=== PATIENT | female | born 1940 | race Caucasian/White ===

== ENCOUNTER 2019-03-16 17:53 | Emergency (ER) | payer MEDICARE ==
[~2019-03-16] VITALS: Ht 152.4 cm; Wt 51.7 kg
--- OUTSIDE RECORDS SUMMARY | 2019-03-16 17:56 | XMS REPORT | Clinical Summary ---
Author Author [facility] Address Unknown Phone Unavailable Care Team Providers Care Ostomy Nurse Name Role Phone Baljit Peralta MD PCP Allergies Comments Active Allergy Reactions Severity Noted Date Beverage Alcohol 03/17/2018 Garlic Diarrhea Low 07/15/2016 Lactulose Diarrhea Low 07/15/2016 Onion Diarrhea Low 07/15/2016 Converted from ECW; 5 D Z BUNNY - ; Other 04/20/2016 Medications End Date Status Medication Sig Dispensed Refills Start Date Active levothyroxine (SYNTHROID, TK 1 T PO QD 1 LEVOTHROID) 75 MCG tablet 6 Active traMADol (ULTRAM) 50 mg TK 1 T PO Q 6 0 tablet H PRN 6 Active propylene glycol-glycerin Apply to eye. 0 (ARTIFICIAL TEARS,GLYCERIN-PEG,) 1-0.3 % drops Active PREMARIN 0.625 mg/gram PABLO QD UTD 2 vaginal cream 6 Active rOPINIRole (REQUIP) 1 MG Take 1 mg by 0 tablet mouth daily. Active cholecalciferol, vitamin Take 2,000 0 D3, (VITAMIN D3) 2,000 Units by unit capsule capsule mouth daily. Active TURMERIC ROOT EXTRACT Take by mouth 0 ORAL daily. Active ascorbic acid, vitamin C, Take 500 mg 0 (VITAMIN C) 500 MG tablet by mouth daily. Active cyanocobalamin, vitamin Take by 0 B-12, (VITAMIN B-12) mouth. 1,000 mcg/mL drops Active Lactobacillus acidophilus Take by 0 (PROBIOTIC ACIDOPHILUS mouth. ORAL) Active bimatoprost (LUMIGAN) Administer 1 7.5 mL 4 0.01 % ophthalmic drops drop to both 9 eyes nightly. Active timolol (TIMOPTIC) 0.5 % Administer 1 30 mL 4 ophthalmic solution drop to both 9 eyes 2 (two) times a day. 03/17/2018 Discontinued (Discontinued by another clinician) hyoscyamine (LEVSIN) PLACE 1 T 0 0.125 mg SL tablet UNDER THE 6 TONGUE QID AC AND HS 12/01/2018 Discontinued (Therapy completed) loteprednol (ALREX) 0.2 % Apply 1 drop 5 mL 2 drops,suspension to eye 2 6 (two) times a day. 03/17/2018 Discontinued (Discontinued by another clinician) eszopiclone (LUNESTA) 3 Take 3 mg by 0 mg tablet mouth nightly. Take immediately before bedtime 12/01/2018 Discontinued (Therapy completed) latanoprost (XALATAN) Administer 1 0 0.005 % ophthalmic drop into the solution left eye nightly. 12/08/2018 Discontinued (Reorder) timolol (TIMOPTIC) 0.5 % Administer 1 0 ophthalmic solution drop into the left eye daily. 04/26/2018 Discontinued coenzyme Q10 10 mg Take 10 mg by 0 capsule mouth daily. 12/01/2018 Discontinued (Therapy completed) cyanocobalamin (VITAMIN Take 250 mcg 0 B-12) 250 MCG tablet by mouth daily. 04/26/2018 Discontinued celecoxib (CeleBREX) 200 Take 1 60 capsule 5 MG capsuleIndications: capsule (200 8 Spondylosis of cervical mg total) by region without myelopathy mouth 2 (two) or radiculopathy, times a day Osteoarthritis of spine for 180 days. with radiculopathy, lumbar region 12/01/2018 Discontinued (Therapy completed) XIIDRA 5 % dropperette INSTILL 1 3 DROP IN BOTH 8 EYES BID 09/19/2018 Discontinued (Therapy completed) clonAZEPAM (KlonoPIN) DISSOLVE 1 T 1 0.25 MG disintegrating ON TONGUE 8 tablet WHERE IT HAMPTON BID 07/31/2018 Discontinued diazePAM (VALIUM) 10 MG TK 1 T PO HS 0 tablet 8 09/19/2018 Discontinued (Therapy completed) gabapentin (NEURONTIN) Take 3 60 capsule 1 100 mg capsules (300 8 capsuleIndications: mg total) by Lumbar radiculopathy, mouth 2 (two) Polyneuropathy associated times a day. with underlying disease (HCC) 12/01/2018 Discontinued (Therapy completed) nutritional Take by mouth 0 supplement/fiber daily. (SNVTYO-DGHK-JLNE ORAL) 01/19/2019 Discontinued prednisoLONE acetate Administer 1 0 (PRED FORTE) 1 % drop to the ophthalmic suspension right eye 3 (three) times a day. 01/19/2019 Discontinued (Reorder) bimatoprost (LUMIGAN) Administer 1 0 0.01 % ophthalmic drops drop to both eyes nightly. 01/19/2019 Discontinued (Reorder) timolol (TIMOPTIC) 0.5 % Administer 1 10 mL 6 ophthalmic solution drop to both 9 eyes 2 (two) times a day. Active Problems Problem Noted Date Chronic angle-closure glaucoma, severe stage 09/25/2018 Myositis 07/31/2018 Primary insomnia 07/31/2018 Spinal stenosis of lumbar region without neurogenic claudication 04/26/2018 Cervical spinal stenosis 04/26/2018 Polyneuropathy associated with underlying disease 04/26/2018 Falling 04/26/2018 Bilateral carpal tunnel syndrome 04/26/2018 Atrophy of muscle of hand 04/26/2018 Sjogren's syndrome with keratoconjunctivitis sicca 03/28/2018 Osteoarthritis of spine with radiculopathy, lumbar region 03/28/2018 Spondylosis of cervical region without myelopathy or radiculopathy 03/28/2018 Acquired hypothyroidism 03/28/2018 Vitamin D deficiency 03/28/2018 Sprain of right rotator cuff capsule 03/28/2018 Age-related osteoporosis without current pathological fracture 03/28/2018 Abnormality of gait 08/12/2016 Myalgia 08/12/2016 Resolved Problems Problem Noted Date Resolved Date Combined forms of age-related cataract of both eyes 09/25/2018 01/19/2019 Encounters Care Team Description Date Type Specialty Viviane Shaffer 02/08/2019 Telephone Endocrinology Viviane Shaffer 01/31/2019 Telephone Endocrinology Bella Alcantar MD Chronic angle-closure glaucoma, severe stage, unspecified laterality (Primary Dx) 01/19/2019 Office Visit Ophthalmology Center, Ophthalmology - Clinical Care 01/02/2019 Telephone Ophthalmology Center, Ophthalmology - Clinical Care 12/25/2018 Telephone Ophthalmology Bella Alcantar MD Combined forms of age-related cataract of both eyes (Primary Dx) 12/15/2018 Office Visit Ophthalmology Bella Alcantar MD Chronic angle-closure glaucoma, severe stage, unspecified laterality (Primary Dx); Combined forms of age-related cataract of both eyes; Sjogren's syndrome with keratoconjunctivitis sicca (HCC) 12/08/2018 Office Visit Ophthalmology Center, Ophthalmology - Clinical Care 12/08/2018 Telephone Ophthalmology Bella Alcantar MD 12/08/2018 Telephone Ophthalmology Bella Alcantar MD CATARACT REMOVAL BY PHACOEMULSIFICATION WITH INTRAOCULAR LENS IMPLANT, ENDOSCOPIC PHOTOCOAGULATION, LEFT EYE 12/07/2018 Surgery Plastic Surgery Baldomero Cook MD 12/07/2018 Anesthesia Plastic Surgery Event Bella Alcantar MD 12/07/2018 Hospital Plastic Surgery Encounter Tonya Sánchez RN 12/07/2018 Telephone Ophthalmology oTnya Sánchez RN 12/07/2018 Telephone Ophthalmology Bella Alcantar MD Combined forms of age-related cataract of both eyes (Primary Dx); Chronic angle-closure glaucoma, severe stage, unspecified laterality 12/01/2018 Office Visit Ophthalmology Bella Alcantar MD Chronic angle-closure glaucoma, severe stage, unspecified laterality (Primary Dx); Combined forms of age-related cataract of both eyes 11/24/2018 Office Visit Ophthalmology Bella Alcantar MD CATARACT REMOVAL BY PHACOEMULSIFICATION WITH INTRAOCULAR LENS IMPLANT, ENDOSCOPIC PHOTOCOAGULATION, RIGHT EYE 11/23/2018 Surgery Plastic Surgery Bernadette Aguillon MD 11/23/2018 Anesthesia Plastic Surgery Event Bella Alcantar MD 11/23/2018 Hospital Plastic Surgery Encounter Bella Alcantar MD 11/22/2018 Telephone Ophthalmology Bella Alcantar MD 11/17/2018 Telephone Ophthalmology Bella Alcantar MD 11/16/2018 Telephone Ophthalmology Bella Alcantar MD 11/01/2018 Telephone Ophthalmology Bella Alcantar MD 11/01/2018 Telephone Ophthalmology Bella Alcantar MD 10/27/2018 Telephone Ophthalmology Center, Ophthalmology - Clinical Care 10/06/2018 Telephone Ophthalmology Bella Alcantar MD 10/02/2018 Telephone Ophthalmology Bella Alcantar MD 10/02/2018 Telephone Ophthalmology Center, Ophthalmology - Clinical Care 09/28/2018 Telephone Ophthalmology Center, Ophthalmology - Clinical Care 09/27/2018 Telephone Ophthalmology Bella Alcantar MD 09/26/2018 Telephone Ophthalmology Bella Alcantar MD Combined forms of age-related cataract of both eyes (Primary Dx); Chronic angle-closure glaucoma, severe stage, unspecified laterality 09/25/2018 Office Visit Ophthalmology Gonzalo Garay MD Generalized OA (Primary Dx); Osteoarthritis of spine with radiculopathy, cervical region; Spinal stenosis of lumbar region without neurogenic claudication; Fibromyalgia; Glaucoma of both eyes, unspecified glaucoma type; Vitamin D deficiency 09/19/2018 Office Visit Rheumatology Viviane Shaffer 09/19/2018 Telephone Endocrinology Viviane Shaffer 09/18/2018 Telephone Endocrinology Les Tobias MD Primary osteoarthritis of left knee (Primary Dx); Lumbar radiculopathy; Myalgia; Sjogren's syndrome with keratoconjunctivitis sicca (HCC); Abnormality of gait; Spinal stenosis of lumbar region without neurogenic claudication; Falling; Back pain, unspecified back location, unspecified back pain laterality, unspecified chronicity; Other myositis of other site; Lumbar radicular pain; Chronic pain of left knee; Primary insomnia 07/31/2018 Office Visit Physical Medicine and Rehabilitation Maryanne Roberts MD 05/08/2018 Telephone Neurology Maryanne Roberts MD 05/02/2018 Telephone Neurology Maryanne Roberts MD Lumbar radiculopathy (Primary Dx); Spinal stenosis of lumbar region without neurogenic claudication; Weakness of extremity; Cervical spinal stenosis; Polyneuropathy associated with underlying disease (HCC); Falling; Bilateral carpal tunnel syndrome; Atrophy of muscle of hand, unspecified laterality 04/26/2018 Office Visit Neurology Jasmin Monzon MA Age-related osteoporosis without current pathological fracture (Primary Dx) 04/26/2018 Orders Only Rheumatology Jasmin Monzon MA 04/26/2018 Telephone Rheumatology Gonzalo Garay MD Claudication 03/27/2018 Hospital Procedural Cardiology Encounter Gonzalo Garay MD Pain in both feet 03/27/2018 Hospital Radiology Encounter Gonzalo Garay MD Chronic pain of both ankles 03/27/2018 Hospital Radiology Encounter Gonzalo Garay MD Sprain of right rotator cuff capsule, initial encounter 03/27/2018 Hospital Radiology Encounter Diana Manrique MD Other hearing loss of right ear with unrestricted hearing of left ear; Sensory hearing loss, bilateral 03/27/2018 Hospital Radiology Encounter Gonzalo Garay MD Osteoarthritis of spine with radiculopathy, lumbar region 03/27/2018 Hospital Radiology Encounter Gonzalo Garay MD Age-related osteoporosis without current pathological fracture 03/27/2018 Ancillary Radiology Procedure Viviane Shaffer 03/24/2018 Telephone Endocrinology Diana Manrique MD Other hearing loss of right ear with unrestricted hearing of left ear (Primary Dx); Sensory hearing loss, bilateral; Dizziness and giddiness 03/21/2018 Transcribe Access Orders Viviane Shaffer 03/20/2018 Telephone Endocrinology Gonzalo Garay MD Sjogren's syndrome with keratoconjunctivitis sicca (Primary Dx); Spondylosis of cervical region without myelopathy or radiculopathy; Osteoarthritis of spine with radiculopathy, lumbar region; Positive LISBET (antinuclear antibody); Elevated rheumatoid factor; Acquired hypothyroidism; Glaucoma of both eyes, unspecified glaucoma type; Weakness; Encounter for long-term (current) use of high-risk medication; Vitamin D deficiency; Sprain of right rotator cuff capsule, initial encounter; Claudication; Age-related osteoporosis without current pathological fracture; Pain in both feet; Chronic pain of both ankles 03/17/2018 Office Visit Rheumatology after 03/15/2018 Immunizations Name Administration Dates Next Due Pneumococcal 01/06/2011 Polysaccharide Family History Medical History Relation Name Comments Lung cancer Father Pneumonia Mother Aspiration Relation Name Status Comments Father Mother Social History Date Tobacco Use Types Packs/Day Years Used Never Smoker Smokeless Tobacco: Never Used Drinks/Week oz/Week Comments Alcohol Use No Sex Assigned at Date Recorded Not on file Industry Job Start Date Occupation Not on file Not on file Not on file Travel End Travel History Travel Start No recent travel history available. Last Filed Vital Signs Reading Time Taken Comments Vital Sign 141/66 12/07/2018 12:32 PM CDT Blood Pressure 64 12/07/2018 12:29 PM CDT Pulse 36.7 C (98 F) 12/07/2018 12:29 PM CDT Temperature 16 12/07/2018 12:29 PM CDT Respiratory Rate 99% 12/07/2018 12:29 PM CDT Oxygen Saturation - - Inhaled Oxygen Concentration 55.5 kg (122 lb 7 oz) 12/07/2018 10:05 AM CDT Weight 152.4 cm (5') 12/07/2018 10:05 AM CDT Height 23.91 12/07/2018 10:05 AM CDT Body Mass Index Plan of Treatment Care Team Description Date Type Specialty Richard Dejesus II, MD [address] [facility] [address] [place] [address] [id number] 03/30/2019 Office Visit Ophthalmology Gonzalo Garay MD [address] [facility] [address] [place] [address] [phone] 04/05/2019 Appointment Radiology Gonzalo Garay MD [address] [facility] [address] [place] [address] [phone] 04/05/2019 Office Visit Rheumatology Bella Alcantar MD [address] [address] [phone] 04/18/2019 Office Visit Ophthalmology Health Maintenance Due Date Last Done Comments SHINGLES VACCINES (#1) 1991 INFLUENZA VACCINE 02/01/2019 65+ PNEUMOCOCCAL VACCINE Completed 2015, 01/06/2011 Implants Device Identifier Shelf Expiration Date Model / Serial / Lot Implanted Type Area [facility] 06/15/2021 [id number] / [id number] / [id number] Lens Iol Tecnis Monofocal Preloaded Intraocula Right: Eye BAUGH 1 Piece Pcb 22.5d - [id number] - r Lens MEDICAL [id number] Implant OPTICS Implanted: Qty: 1 on 11/23/2018 by Bella Alcantar MD at [facility] 08/09/2021 [id number] / [id number] / [id number] Lens Iol Tecnis Monofocal Preloaded Intraocula Left: Eye BAUGH 1 Piece Pcb 22.5d - [id number] - r Lens MEDICAL [id number] Implant OPTICS Implanted: Qty: 1 on 12/07/2018 by Bella Alcantar MD at [facility] Procedures Comments Procedure Name Priority Date/Time Associated Diagnosis PHACOEMULSIFICATION, 12/07/2018 Combined form of CATARACT, WITH IOL 11:44 AM CDT age-related cataract, IMPLANTATION left eye Chronic angle-closure glaucoma, severe stage Case Notes REG LENS Special Needs REG LENS PHACOEMULSIFICATION, 11/23/2018 Combined form of CATARACT, WITH IOL 11:05 AM CDT age-related cataract, IMPLANTATION right eye Chronic angle-closure glaucoma, severe stage Special Needs REG LENS OCT, OPTIC NERVE - OU - Routine 09/25/2018 Chronic angle-closure BOTH EYES 11:17 AM CDT glaucoma, severe stage, unspecified laterality AUTOMATED VISUAL FIELD, Routine 09/25/2018 Chronic angle-closure EXTENDED - OU - BOTH EYES 11:17 AM CDT glaucoma, severe stage, unspecified laterality MRI CERVICAL SPINE WO STAT 04/27/2018 Weakness of extremity CONTRAST 2:00 PM CDT Cervical spinal stenosis XR FOOT 3 VW BILATERAL Routine 03/27/2018 Pain in both feet 3:08 PM CDT XR ANKLE 3 VW BILATERAL Routine 03/27/2018 Chronic pain of both 3:08 PM CDT ankles XR SHOULDER 2+ VW RIGHT Routine 03/27/2018 Sprain of right rotator 3:07 PM CDT cuff capsule, initial encounter PV PHYSIOLOGIC ARTERIAL Routine 03/27/2018 Claudication LOWER EXTREMITY COMPLETE 2:12 PM CDT MRI IAC W WO CONTRAST Routine 03/27/2018 Other hearing loss of 12:40 PM CDT right ear with unrestricted hearing of left ear Sensory hearing loss, bilateral MRI LUMBAR SPINE WO Routine 03/27/2018 Osteoarthritis of spine CONTRAST 12:16 PM CDT with radiculopathy, lumbar region BONE DENSITY Routine 03/27/2018 Age-related osteoporosis 9:56 AM CDT without current pathological fracture VITAMIN D 25 HYDROXY Routine 03/17/2018 Vitamin D deficiency LEVEL 2:00 PM CDT URINALYSIS, AUTOMATED Routine 03/17/2018 Encounter for long-term WITH MICROSCOPY 2:00 PM CDT (current) use of high-risk medication SSA/SSB ANTIBODY Routine 03/17/2018 Sjogren's syndrome with 2:00 PM CDT keratoconjunctivitis sicca SM AND SM/BUSINESS OFFICE REPRESENTATIVE ANTIBODIES Routine 03/17/2018 Positive LISBET (antinuclear 2:00 PM CDT antibody) SEDIMENTATION RATE Routine 03/17/2018 Sjogren's syndrome with 2:00 PM CDT keratoconjunctivitis sicca SERUM ELECTROPHORESIS Routine 03/17/2018 Sjogren's syndrome with 2:00 PM CDT keratoconjunctivitis sicca RHEUMATOID FACTOR Routine 03/17/2018 Elevated rheumatoid 2:00 PM CDT factor DNA AB SCREEN Routine 03/17/2018 Positive LISBET (antinuclear 2:00 PM CDT antibody) CYCLIC CITRULLINATED Routine 03/17/2018 Elevated rheumatoid PEPTIDE AB, IGG 2:00 PM CDT factor CREATINE KINASE, TOTAL Routine 03/17/2018 Weakness (CPK) 2:00 PM CDT C-REACTIVE PROTEIN Routine 03/17/2018 Sjogren's syndrome with 2:00 PM CDT keratoconjunctivitis sicca COMPREHENSIVE METABOLIC Routine 03/17/2018 Encounter for long-term PANEL 2:00 PM CDT (current) use of high-risk medication CBC WITH PLATELET AND Routine 03/17/2018 Encounter for long-term DIFFERENTIAL 2:00 PM CDT (current) use of high-risk medication C4 COMPLEMENT COMPONENT Routine 03/17/2018 Positive LISBET (antinuclear 2:00 PM CDT antibody) C3 COMPLEMENT COMPONENT Routine 03/17/2018 Positive LISBET (antinuclear 2:00 PM CDT antibody) LISBET SCREEN W IFA W REFLEX Routine 03/17/2018 Positive LISBET (antinuclear TO TITER 2:00 PM CDT antibody) after 03/15/2018 Results * OCT, Optic Nerve - OU (09/25/2018 11:17 AM CDT) Specimen Narrative Performed At Right Eye Reliability was good. Temporal thickness was normal. Superior thickness was showing abnormal thinning. Nasal thickness was normal. Inferior thickness was showing abnormal thinning. Left Eye Reliability was good. Temporal thickness was normal. Superior thickness was normal. Nasal thickness was normal. Inferior thickness was showing abnormal thinning. * Automated Visual Field, Extended - OU (09/25/2018 11:17 AM CDT) Specimen Narrative Performed At Right Eye Threshold was 24-2. Strategy was ZENAIDA. Findings include superior altitudinal defect. Left Eye Threshold was 24-2. Strategy was ZENAIDA. Findings include superior arcuate defect. * MRI Cervical Spine Wo Contrast (04/27/2018 2:00 PM CDT) Specimen Narrative Performed At [facility] EXAMINATION:MRI CERVICAL SPINE WO CONTRAST CLINICAL HISTORY:R29.898 Other symptoms and signs involving the musculoskeletal system, M48.02 Spinal stenosiscervical region, weaknesscervical radiculopathyneck pain COMPARISON:CT cervical spine March 03, 2015. FINDINGS: C1-2: There are mild degenerative changes at the atlantodental articulation C2-3: There is mild spondylosis and minimal central disc protrusion. There is no canal stenosis or foraminal stenosis. C3-4: There is minimal spondylolisthesis of C3 relative to C4. There is marked disc space narrowing, moderate spondylosis and degenerative change in the disc. There is shallow dorsal osteophyte formation and with mild to moderate (8 mm) canal stenosis without cord compression. There is uncovertebral hypertrophic change with moderate foraminal stenosis bilaterally. C4-5: General change in the disc and at least partial fusion of the disc space. There is minimal dorsal osteophyte formation greater on the right without canal stenosis or cord correction. There is mild foraminal stenosis on the right. C5-6: There is marked disc space narrowing, spondylosis and degenerative change in the disc. There is a minimal dorsal disc bulge without canal stenosis.. There are uncovertebral hypertrophic changes with at least moderate foraminal stenosis bilaterally. There is slight retrolisthesis of C5 relative to C6. C6-7: There is marked disc space narrowing, moderate spondylosis and degenerative change of the disc. There is slight retrolisthesis of C6 relative to C7. There is minimal dorsal spondylosis and disc bulge without canal stenosis. There is mild to moderate foraminal stenosis bilaterally. C7-T1: There is minimal if any spondylolisthesis of C7 relative T1 with moderate degenerative change in the facet joints. There is no stenosis. There is slight reversal of the normal cervical lordotic curve with apex at C4-5. There is no signal abnormality demonstrated in the spinal cord and no evidence of Chiari malformation. IMPRESSION: Considerable degenerative changes in the cervical spine without significant spinal canal stenosis. There is multilevel foraminal stenosis bilaterally. The findings are very similar to that seen on the prior study. There is no evidence of a spinal cord lesion. [facility]-[id number] Procedure Note Hm Interface, Radiology Results Incoming - 04/27/2018 2:59 PM CDT EXAMINATION: MRI CERVICAL SPINE WO CONTRAST CLINICAL HISTORY: R29.898 Other symptoms and signs involving the musculoskeletal system, M48.02 Spinal stenosis cervical region, weakness cervical radiculopathy neck pain COMPARISON: CT cervical spine March 03, 2015. FINDINGS: C1-2: There are mild degenerative changes at the atlantodental articulation C2-3: There is mild spondylosis and minimal central disc protrusion. There is no canal stenosis or foraminal stenosis. C3-4: There is minimal spondylolisthesis of C3 relative to C4. There is marked disc space narrowing, moderate spondylosis and degenerative change in the disc. There is shallow dorsal osteophyte formation and with mild to moderate (8 mm) canal stenosis without cord compression. There is uncovertebral hypertrophic change with moderate foraminal stenosis bilaterally. C4-5: General change in the disc and at least partial fusion of the disc space. There is minimal dorsal osteophyte formation greater on the right without canal stenosis or cord correction. There is mild foraminal stenosis on the right. C5-6: There is marked disc space narrowing, spondylosis and degenerative change in the disc. There is a minimal dorsal disc bulge without canal stenosis.. There are uncovertebral hypertrophic changes with at least moderate foraminal stenosis bilaterally. There is slight retrolisthesis of C5 relative to C6. C6-7: There is marked disc space narrowing, moderate spondylosis and degenerative change of the disc. There is slight retrolisthesis of C6 relative to C7. There is minimal dorsal spondylosis and disc bulge without canal stenosis. There is mild to moderate foraminal stenosis bilaterally. C7-T1: There is minimal if any spondylolisthesis of C7 relative T1 with moderate degenerative change in the facet joints. There is no stenosis. There is slight reversal of the normal cervical lordotic curve with apex at C4- 5. There is no signal abnormality demonstrated in the spinal cord and no evidence of Chiari malformation. IMPRESSION: Considerable degenerative changes in the cervical spine without significant spinal canal stenosis. There is multilevel foraminal stenosis bilaterally. The findings are very similar to that seen on the prior study. There is no evidence of a spinal cord lesion. [facility]-[id number] Performing Organization Address City/State/Zipcode Phone Number [facility] [address] [place] [address] * XR Foot 3 Vw Bilateral (03/27/2018 3:08 PM CDT) Specimen Narrative Performed At XR FOOT 3 VW BILATERAL [facility] CLINICAL INDICATION:M79.671 Pain in right foot, M79.672 Pain in left foot, foot pain with former fractures COMPARISON:None. IMPRESSION: Bones are normal in alignment with mild decreased bone density. There is no fracture or osseous lesion. There are minimal degenerative changes of the left greater than right first metatarsophalangeal joint. No inflammatory erosions are identified. There is mild osseous remodeling of the dorsal navicular with slight joint space narrowing on the right. Soft tissues are unremarkable. Thank you for allowing us to participate in the care of your patient [facility]-[id number] Procedure Note Interface, Radiology Results Incoming - 03/27/2018 3:38 PM CDT XR FOOT 3 VW BILATERAL CLINICAL INDICATION: M79.671 Pain in right foot, M79.672 Pain in left foot, foot pain with former fractures COMPARISON: None. IMPRESSION: Bones are normal in alignment with mild decreased bone density. There is no fracture or osseous lesion. There are minimal degenerative changes of the left greater than right first metatarsophalangeal joint. No inflammatory erosions are identified. There is mild osseous remodeling of the dorsal navicular with slight joint space narrowing on the right. Soft tissues are unremarkable. Thank you for allowing us to participate in the care of your patient [facility]-[id number] Performing Organization Address [facility] Phone Number [facility] [address] [place], [place] [id number] * XR Ankle 3 Vw Bilateral (03/27/2018 3:08 PM CDT) Specimen Narrative Performed At XR ANKLE 3 VW BILATERAL [facility] CLINICAL INDICATION:M25.571 Pain in right ankle and joints of right foot, G89.29 Other chronic pain, Inflammatory arthritis with ankle pain COMPARISON:None. IMPRESSION: Bones appear demineralized but intact without fracture or osseous lesion. No significant osteoarthritic changes are identified in the ankle. Soft tissues are unremarkable. Thank you for allowing us to participate in the care of your patient [id number] Procedure Note Interface, Radiology Results Incoming - 03/27/2018 3:43 PM CDT XR ANKLE 3 VW BILATERAL CLINICAL INDICATION: M25.571 Pain in right ankle and joints of right foot, G89.29 Other chronic pain, Inflammatory arthritis with ankle pain COMPARISON: None. IMPRESSION: Bones appear demineralized but intact without fracture or osseous lesion. No significant osteoarthritic changes are identified in the ankle. Soft tissues are unremarkable. Thank you for allowing us to participate in the care of your patient [id number] Performing Organization Address [facility] Phone Number [facility] [address] [place] [address] * XR Shoulder 2+ Vw Right (03/27/2018 3:07 PM CDT) Specimen Narrative Performed At XR SHOULDER 2VW RIGHT [facility] CLINICAL INDICATION:S43.421A Sprain of right rotator cuff capsuleinitial encounter, Rotator Cuff Impingement COMPARISON:None. IMPRESSION: No fracture or dislocation right shoulder is identified. Acromioclavicular joint appears maintained. Clavicle and lateral thoracic wall structures are unremarkable.Soft tissues appear within normal limits. Thank you for allowing us to participate in the care of your patient. [id number] Procedure Note Interface, Radiology Results Incoming - 03/27/2018 3:31 PM CDT XR SHOULDER 2 VW RIGHT CLINICAL INDICATION: S43.421A Sprain of right rotator cuff capsule initial encounter, Rotator Cuff Impingement COMPARISON: None. IMPRESSION: No fracture or dislocation right shoulder is identified. Acromioclavicular joint appears maintained. Clavicle and lateral thoracic wall structures are unremarkable. Soft tissues appear within normal limits. Thank you for allowing us to participate in the care of your patient. [id number] Performing Organization Address City/State/Zipcode Phone Number [facility] [address] [facility]. [place] [id number] * Pv physiologic arterial lower extremity complete (03/27/2018 2:12 PM CDT) Specimen Narrative Performed At [facility] Vascular Diagnostic Laboratory Physiologic Arterial Leg Report [id number] [facility] [address], [place] [id number] Pat.Name:CLAIRE PAREKH Pat.ID:[id number] St.Date: 03/27/2018 Refer.MD:GONZALO GARAY MD Exam Time: 12:58:00 PM Study Type:Physiologic Leg DOBAge:1940,78Y Sex: FEMALE Sonogrphr: Duglas Ulloa RN, RVTPat. Stat.:Outpatient TapeVol: DP, CPT - 4: 65636 Echo Event ID:[id number] Order ID:[id number] Reason for Study:Bilateral foot pain and tingling.Pain down posterior to left leg. Procedures:Ankle/brachial pressures, Digit pressures, Non-imaging continuous wave Doppler, PPG waveform tracing, Segmental pressures Race: SUMMARY: DOPPLER SIGNALS /ANALOG WAVEFORMS: DOPPLER SIGNALS ANALOG WAVEFORMS ARTERY RIGHT LEFT RIGHT LEFT Common Femoral Normal Normal Normal Normal Superficial Femoral Normal NormalNormalNormal PoplitealNormal NormalNormalNormal Posterior Tibial Normal NormalNormal Normal Dorsalis Pedis Normal NormalNormalNormal SEGMENTAL PRESSURE(mmHg): RIGHT LEFT Brachial 134 130 High [id number] 164 Low Ssave010 160 Calf [id number] Ankle DP 148 141 Ankle [id number] Great Toe 561992 ANKLE/BRACHIAL INDEX: RIGHTLEFT Dorsalis Pedis1.051.07 Posterior Tibial1.10 1.05 TOE/BRACHIAL INDEX: RIGHT LEFT 0.880.87 PRELIMINARY FINDINGS: 1.Normal arterial Doppler study of the lower extremities. PHYSICIAN INTERPRETATION: Bilateral lower extremity arterial exam demonstrates no evidence of significant arterial occlusive disease. The DELIA's and TBI's are within normal range. Signed 03/27/2018 03:59 PM Mata Serrano MD, [facility] Procedure Note Interface, Radiology Results In - 03/27/2018 4:00 PM CDT Vascular Diagnostic Laboratory Physiologic Arterial Leg Report [id number] [address] Pat.Name: CLAIRE PAREKH Pat.ID: [id number] .Date: 03/27/2018 Refer.MD: GONZALO GARAY MD Exam Time: 12:58:00 PM Study Type:Physiologic Leg Age: 9 1940,78Y Sex: FEMALE Sonogrphr: Duglas Ulloa RN, T Pat. Stat.:Outpatient Tape Vol: DP, CPT - 4: 44505 Echo Event ID:[id number] Order ID: [id number] Reason for Study:Bilateral foot pain and tingling. Pain down posterior to left leg. Procedures:Ankle/brachial pressures, Digit pressures, Non-imaging continuous wave Doppler, PPG waveform tracing, Segmental pressures Race: SUMMARY: DOPPLER SIGNALS / ANALOG WAVEFORMS: DOPPLER SIGNALS ANALOG WAVEFORMS ARTERY RIGHT LEFT RIGHT LEFT Common Femoral Normal Normal Normal Normal Superficial Femoral Normal Normal Normal Normal Popliteal Normal Normal Normal Normal Posterior Tibial Normal Normal Normal Normal Dorsalis Pedis Normal Normal Normal Normal SEGMENTAL PRESSURE (mmHg): RIGHT LEFT Brachial 134 130 High Thigh 162 164 Low Thigh 158 160 Calf 153 154 Ankle DP 148 141 Ankle PT 140 144 Great Toe 118 116 ANKLE/BRACHIAL INDEX: RIGHT LEFT Dorsalis Pedis 1.05 1.07 Posterior Tibial 1.10 1.05 TOE/BRACHIAL INDEX: RIGHT LEFT 0.88 0.87 PRELIMINARY FINDINGS: 1. Normal arterial Doppler study of the lower extremities. PHYSICIAN INTERPRETATION: Bilateral lower extremity arterial exam demonstrates no evidence of significant arterial occlusive disease. The DELIA's and TBI's are within normal range. Signed 03/27/2018 03:59 PM Mata Serrano MD, RPVI Performing Organization Address City/State/Zipcode Phone Number [facility] [address] [place] [address] * MRI IAC W Wo Contrast (03/27/2018 12:40 PM CDT) Specimen Narrative Performed At [facility] EXAMINATION: MRI IAC W WO CONTRAST COMPARISON: None CLINICAL HISTORY H91.8X1 Other specified hearing lossright ear, H90.3 Sensorineural hearing lossbilateral, Other hearing loss of right ear with unrestricted hearing of left ear. TECHNIQUE: Multiplanar multisequence examination was performed with and without contrast as well as including high-resolution images of the posterior fossa FINDINGS: There is no definite diffusion restriction. The ventricles and subarachnoid spaces are diffusely dilated. There are minimal chronic microvascular ischemic changes in the centrum semiovale and in the gianna. High-resolution images of the posterior fossa demonstrate the mastoid air cells to be normally and symmetrically developed and aerated. There is no abnormal signal or abnormal enhancement within the internal auditory canals or the CP angle cisterns. There are no abnormal enhancing lesions within the brain parenchyma. There are no brainstem structures abnormalities. IMPRESSION: Generalized involutional changes. No evidence of acute abnormalities or abnormal enhancing lesions especially in the posterior fossa. [facility]-[id number] Procedure Note Interface, Radiology Results Incoming - 03/27/2018 1:28 PM CDT EXAMINATION: MRI IAC W WO CONTRAST COMPARISON: None CLINICAL HISTORY H91.8X1 Other specified hearing loss right ear, H90.3 Sensorineural hearing loss bilateral, Other hearing loss of right ear with unrestricted hearing of left ear. TECHNIQUE: Multiplanar multisequence examination was performed with and without contrast as well as including high-resolution images of the posterior fossa FINDINGS: There is no definite diffusion restriction. The ventricles and subarachnoid spaces are diffusely dilated. There are minimal chronic microvascular ischemic changes in the centrum semiovale and in the gianna. High-resolution images of the posterior fossa demonstrate the mastoid air cells to be normally and symmetrically developed and aerated. There is no abnormal signal or abnormal enhancement within the internal auditory canals or the CP angle cisterns. There are no abnormal enhancing lesions within the brain parenchyma. There are no brainstem structures abnormalities. IMPRESSION: Generalized involutional changes. No evidence of acute abnormalities or abnormal enhancing lesions especially in the posterior fossa. 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 FINDINGS: There are 5 non-rib bearing lumbar type vertebrae. No fracture. 1 to 2 mm anterolisthesis L4 on L5, degenerative.No suspicious osseous lesions. Marrow edema about the L3-4 endplates, degenerative. Conus medullaris terminates at the level of L1. Evaluation of the visualized soft tissues demonstrates no mass, adenopathy or aneurysm. Axial images through the disc spaces demonstrate the following: L1-L2: No significant posterior disc disease, spinal canal, subarticular zone, or neural foraminal stenosis. Disc desiccation. L2-L3: Severe disc height loss with Modic type II endplate changes. Small endplate osteophytes and mild to moderate facet arthropathy contributes to mild to moderate left and mild right neural foraminal stenosis, without significant spinal canal or subarticular zone stenosis. L3-L4: Marrow edema about the endplates, degenerative. Small endplate osteophytes and small disc bulge, as well as moderate left and mild right facet arthropathy contributes to moderate left and mild right subarticular zone stenosis, mild spinal canal stenosis, moderate to severe left and mild right neural foraminal stenosis, with possible mass effect on the exiting left L3 nerve root by endplate osteophytes distally. L4-L5: Severe facet arthropathy with mild ligament flavum infolding and associated grade 1 anterolisthesis, disc uncovering, and small endplate osteophytes contributes to mild right greater than left neural foraminal stenosis, mild to moderate spinal canal stenosis, mild left and moderate right subarticular zone stenosis with abutment of the traversing right L5 nerve root without definite compression. L5-S1: Small disc bulge and severe facet arthropathy contributes to mild right neural foraminal stenosis, without significant spinal canal, subarticular zone, or left neural foraminal stenosis. IMPRESSION: 1. Multilevel degenerative changes of the lumbar spine, centrally at L2-3, L3-4, and L4-5 as above. 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 FINDINGS: There are 5 non-rib bearing lumbar type vertebrae. No fracture. 1 to 2 mm anterolisthesis L4 on L5, degenerative. No suspicious osseous lesions. Marrow edema about the L3-4 endplates, degenerative. Conus medullaris terminates at the level of L1. Evaluation of the visualized soft tissues demonstrates no mass, adenopathy or aneurysm. Axial images through the disc spaces demonstrate the following: L1-L2: No significant posterior disc disease, spinal canal, subarticular zone, or neural foraminal stenosis. Disc desiccation. L2-L3: Severe disc height loss with Modic type II endplate changes. Small endplate osteophytes and mild to moderate facet arthropathy contributes to mild to moderate left and mild right neural foraminal stenosis, without significant spinal canal or subarticular zone stenosis. L3-L4: Marrow edema about the endplates, degenerative. Small endplate osteophytes and small disc bulge, as well as moderate left and mild right facet arthropathy contributes to moderate left and mild right subarticular zone stenosis, mild spinal canal stenosis, moderate to severe left and mild right neural foraminal stenosis, with possible mass effect on the exiting left L3 nerve root by endplate osteophytes distally. L4-L5: Severe facet arthropathy with mild ligament flavum infolding and associated grade 1 anterolisthesis, disc uncovering, and small endplate osteophytes contributes to mild right greater than left neural foraminal stenosis, mild to moderate spinal canal stenosis, mild left and moderate right subarticular zone stenosis with abutment of the traversing right L5 nerve root without definite compression. L5-S1: Small disc bulge and severe facet arthropathy contributes to mild right neural foraminal stenosis, without significant spinal canal, subarticular zone, or left neural foraminal stenosis. IMPRESSION: 1. Multilevel degenerative changes of the lumbar spine, centrally at L2-3, L3-4, and L4-5 as above. [id number] Performing Organization Address City/State/Zipcode Phone Number [facility] [address] [place] [address] * Bone Density (03/27/2018 9:56 AM CDT) Specimen Narrative Performed At [facility] [address], [place]. [address] [place] [address] Bone Density Report Name: Claire Parekh Sex: Female Age: 78 Ethnicity: White Height: 59.5 in Referring Provider: GONZALO GARAY Date of : 1940 Weight: 119.0lb Indication: Postmenopausal; screening for osteoporosis; prior fracture Accession number: [id number] Bone Density: Exam date 03/27/2018 Region BMD (g/cm2) T-score Z-score Classification AP Spine(L1, L2) 0.799 -1.60.7 Osteopenia Femoral Neck(Left) 0.655 -1.70.4 Osteopenia Total Hip(Left) 0.812 -1.10.8 Osteopenia Femoral Neck(Right) 0.638 -1.90.3 Osteopenia Total Hip(Right) 0.791 -1.20.7 Osteopenia Total Hip Mean 0.802 -1.2 0.8 Osteopenia World Health Organization criteria for BMD impression classify patients as Normal (T-score at or above 1.0), Osteopenia (T-score between 1.0 and 2.5), or Osteoporosis (T-score at or below 2.5). 10-year Fracture Risk: Major Osteoporotic Fracture 19% Hip Fracture 4.6% Reported Risk Factors: [place] (), T-score(WHO)=-1.8, BMI=23.6, previous fracture FRAX Version 3.08. Fracture probability calculated for an untreated patient. Fracture probability may be lower if the patient has received treatment. Impression: Degenerative changes limit interpretation at the spine. L1-L2 were used for analysis. The patient has low bone mass, based on the Right Femoral Neck T-score. The patient has an estimated ten-year risk of hip fracture of 4.6% and an estimated ten-year risk of major fracture of 19%, based on the WHO FRAX algorithm for a patient not on therapy (NOF thresholds are 20% for a major fracture and 3% for a hip fracture). The patient has risk factors, including: previous fracture. Discussion: BONE DENSITY IS LOW AT ONE OR MORE SKELETAL SITES. THE PATIENT'S BMD AND CLINICAL RISK FACTORS CONTRIBUTE TO THIS PATIENT'S INCREASED RISK OF FRACTURE. This patient's lowest T-score is low at one or more skeletal sites.It meets the World Health Organization's (WHO) criteria for low bone mass (T-score between -1.0 and -2.5). The patient's 10-year risk of hip fracture as calculated by FRAX exceeds the threshold where pharmacological therapy is recommended by the National Osteoporosis Foundation (NOF).However, all treatment decisions require clinical judgment and consideration of individual patient factors, including patient preferences, comorbidities, previous drug use, risk factors not captured in the FRAX model (e.g., frailty, falls, vitamin D deficiency, increased bone turnover, interval significant decline in bone density) and possible under or overestimation of fracture risk by FRAX. The patient should follow a healthful lifestyle (good nutrition with adequate calcium and vitamin D, and appropriate weight-bearing exercise). Follow-Up: Consider a repeat BMD and Vertebral Fracture Assessment (VFA) exam in 2 years or sooner if medically necessary, to reassess this patient's status. Reported by: Albino Armendariz MD, ANTHONY, MACE, FACP, CCD on 04/10/2018 7:38:00 AM. Performing Organization Address [facility] Phone Number [facility] [address] [place] [address] * Sm and Sm/BUSINESS OFFICE REPRESENTATIVE Antibodies (03/17/2018 2:00 PM CDT) Jones antibody <1.0 NEG <1.0 NEG AI [facility] ING II BUSINESS OFFICE REPRESENTATIVE-SM interp <1.0 NEG <1.0 NEG AI [facility] ING II Specimen Blood Narrative Performed At FASTING:NO [facility] FASTING: NO Resulting Agency Comment Performing Organization Information: Site ID: [id number] Name: [facility] Address: [address] [place] [phone] Director: Dr. Rinku Bruce Performing Organization Address [facility]/Zipcode Phone Number [facility] [address] [place] [address] II * LISBET SCREEN W IFA W REFLEX TO TITER (03/17/2018 2:00 PM CDT) LISBET screen POSITIVE (A) NEGATIVE [facility] Comment: [facility] LISBET IFA is a first line screen ING II for detecting the presence of up to approximately 150 autoantibodies in various autoimmune diseases. A positive LISBET IFA result is suggestive of autoimmune disease and reflexes to titer and pattern. Further laboratory testing may be considered if clinically indicated. Visit Physician FAQs for interpretation of all antibodies in the [place], prevalence, and association with diseases at http://education.Bracketr/ faq/QPQ114 LISBET pattern SPECKLED (A) [facility] Comment: [facility] Speckled pattern is associated ING II with mixed connective tissue disease (MCTD), systemic lupus erythematosus (SLE), Sjogren's syndrome, dermatomyositis, and systemic sclerosis/polymyositis overlap. LISBET titer 1:160 (H) titer [facility] Comment: [facility] ING II Reference Range <1:40Negativ e 1:40-1:80Low Antibody Level >1:80Elevate d Antibody Level Specimen Blood Narrative Performed At FASTING:NO [facility] FASTING: NO Resulting Agency Comment Performing Organization Information: Site ID: [id number] Name: [facility] Address: [address] [place] [phone] Director: Dr. Rinku Bruce Performing Organization Address [facility]/Zipcode Phone Number [employer] [address] [place] [address] II * SSA/SSB antibody (03/17/2018 2:00 PM CDT) Sjogren's SS-A >8.0 POS (A) <1.0 NEG AI [facility] antibody [facility] ING II Sjogren's SS-B 2.0 POS (A) <1.0 NEG AI [facility] antibody [facility] ING II Specimen Blood Narrative Performed At FASTING:NO [facility] FASTING: NO Resulting Agency Comment Performing Organization Information: Site ID: [id number] Name: [facility] Address: [address] [place] [phone] Director: Dr. Rinku Bruce Performing Organization Address [facility] Phone Number [facility] [address] II * DNA Ab screen (03/17/2018 2:00 PM CDT) [facility] DNA ds antibody <1 IU/mL [facility] Comment: [facility] ING II IU/mL Interpretation < or=4Negative 5-9 Indeterminate > or=10 Positive Specimen Blood Narrative Performed At FASTING:NO [facility] FASTING: NO Resulting Agency Comment Performing Organization Information: Site ID: [id number] Name: [facility] Address: [address] [place] [phone] Director: Dr. Rinku Bruce Performing Organization Address [facility] Phone Number [address]Y[address] [address] II * Cyclic citrullinated peptide antibody, IgG (03/17/2018 2:00 PM CDT) [facility] Cyclic <16 UNITS [facility] citrullin Comment: [facility] peptide Ab Reference Range ING II Negative: <20 Weak Positive: 20-39 Moderate Positive: 40-59 Strong Positive: >59 Specimen Blood Narrative Performed At FASTING:NO [facility] FASTING: NO Resulting Agency Comment Performing Organization Information: Site ID: [id number] Name: [facility] Address: [address] [place] [phone] Director: Dr. Rinku Bruce Performing Organization Address [facility] Phone Number [facility] [address] II * Vitamin D 25 hydroxy level (03/17/2018 2:00 PM CDT) [facility] Vitamin D, 53 30 - 100 ng/mL [facility] 25-hydroxy Comment: DIAGNOSTICS Vitamin D LARSEN Status 25-OH Vitamin D: Deficiency: <20 ng/mL Insufficiency: 20 - 29 ng/mL Optimal: > or=30 ng/mL For 25-OH Vitamin D testing on patients on D2-supplementation and patients for whom quantitation of D2 and D3 fractions is required, the QuestAssureD(TM) 25-OH VIT D, (D2,D3), LC/MS/MS is recommended: order code [id number] (patients >2yrs). For more information on this test, go to: http://education.Hippflow/faq/DSV429 (This link is being provided for informational/educational purposes only.) Specimen Blood Narrative Performed At FASTING:NO [facility] FASTING: NO Resulting Agency Comment Performing Organization Information: Site ID: [facility] Name: [facility] Address: [address] [place] [phone] Director: Kami Albrecht Performing Organization Address City/State/Zipcode Phone Number [facility] [address] [address] * Urinalysis, automated with microscopy (03/17/2018 2:00 PM CDT) Color, UA YELLOW YELLOW [facility] [place] Appearance CLOUDY (A) CLEAR [facility] [place] Specific 1.006 1.001 - 1.035 [facility] gravity, urine [facility] [place] pH, urine 6.5 5.0 - 8.0 [facility] [place] Glucose, urine NEGATIVE NEGATIVE [facility] [place] Bilirubin, UA NEGATIVE NEGATIVE [facility] [place] Ketones, UA NEGATIVE NEGATIVE [facility] [place] Occult blood, NEGATIVE NEGATIVE [facility] [place] Protein, UA NEGATIVE NEGATIVE [facility] [place] Nitrite, UA NEGATIVE NEGATIVE [facility] [place] Leukocyte NEGATIVE NEGATIVE [facility] esterase, UA [facility] [place] WBC, UA 0-5 < OR=5 /HPF [facility] [place] RBC, UA 0-2 < OR=2 /HPF [facility] [place] Squamous 0-5 < OR=5 /HPF [facility] epithelial DIAGNOSTICS cells, UA [place] Bacteria, UA FEW (A) NONE SEEN /HPF [facility] [place] Calcium oxalate FEW NONE OR FEW /HPF [facility] crystals, [facility] [place] Hyaline casts, NONE SEEN NONE SEEN /LPF [facility] UA [facility] [place] Specimen Urine Narrative Performed At FASTING:NO [facility] FASTING: NO Resulting Agency Comment Performing Organization Information: Site ID: [id number] Name: [facility] Address: [address] [place] [phone] Director: Kami Albrecht Performing Organization Address City/[facility]/Zipcode Phone Number [facility] [address] [address] * Sedimentation rate (03/17/2018 2:00 PM CDT) Pathologist [facility] Sedimentation 9 < OR=30 mm/h [facility] rate [facility] [place] Specimen Blood Narrative Performed At FASTING:NO [facility] FASTING: NO Resulting Agency Comment Performing Organization Information: Site ID: [id number] Name: [facility] Address: [address] [place] [phone] Director: Kami Albrecht Performing Organization Address City/[facility] Phone Number [facility] [address] [address] * CBC with platelet and differential (03/17/2018 2:00 PM CDT) [facility] WBC 8.3 3.8 - 10.8 [facility] Thousand/uL [facility] [place] RBC 4.06 3.80 - 5.10 [facility] Million/uL [facility] [place] HGB 12.6 11.7 - 15.5 g/dL [facility] [place] HCT 38.1 35.0 - 45.0 % [facility] [employer] [place] MCV 93.8 80.0 - 100.0 fL [facility] [place] MCH 31.0 27.0 - 33.0 pg [facility] [place] MCHC 33.1 32.0 - 36.0 g/dL [facility] [place] RDW 11.7 11.0 - 15.0 % [facility] [place] Platelet count 308 140 - 400 [facility] Thousand/uL [facility] [place] MPV 10.3 7.5 - 12.5 fL [facility] [place] Neutrophils, 3,262 1,500 - 7,800 [facility] absolute cells/uL [facility] [place] Lymphocytes, 3,943 (H) 850 - 3,900 cells/uL [facility] [place] Monocytes, 822 200 - 950 cells/uL [facility] [place] Eosinophils, 216 15 - 500 cells/uL [facility] [place] Basophils, 58 0 - 200 cells/uL [facility] [place] Neutrophils 39.3 % [facility] [employer] [place] Lymphocytes 47.5 % [facility] [place] Monocytes 9.9 % [facility] [place] Eosinophils 2.6 % [facility] [place] Basophils + RC 0.7 % [facility] [place] Specimen Blood Narrative Performed At FASTING:NO [facility] FASTING: NO Resulting Agency Comment Performing Organization Information: Site ID: [id number] Name: [facility] Address: [address] [place] [phone] Director: Kami Albrecht Performing Organization Address City/[facility]/Zipcode Phone Number [facility] [address] [address] [phone] * Rheumatoid factor (03/17/2018 2:00 PM CDT) Rheumatoid 58 (H) <14 IU/mL [facility] [employer] [place] Specimen Blood Narrative Performed At FASTING:NO [facility] FASTING: NO Resulting Agency Comment Performing Organization Information: Site ID: [facility] Name: [facility] Address: [address] [place] [phone] Director: Kami Albrecht Performing Organization Address [facility] [place] [address] * C3 complement component (03/17/2018 2:00 PM CDT) C3 complement 115 83 - 193 mg/dL [employer] [place] Specimen Blood Narrative Performed At FASTING:NO [facility] FASTING: NO Resulting Agency Comment Performing Organization Information: Site ID: [facility] Name: [facility] Address: [address] [place] [phone] Director: Kami Albrecht Performing Organization Address [facility] [place] [address] * C4 complement component (03/17/2018 2:00 PM CDT) C4 complement 16 15 - 57 mg/dL [employer] [facility] [place] Specimen Blood Narrative Performed At FASTING:NO [facility] FASTING: NO Resulting Agency Comment Performing Organization Information: Site ID: [facility] Name: [facility] Address: [address] [place] [phone] Director: Kami Albrecht Performing Organization Address [facility] [place] [address] * C-reactive protein (03/17/2018 2:00 PM CDT) CRP 1.4 <8.0 mg/L [facility] [place] Specimen Blood Narrative Performed At FASTING:NO [facility] FASTING: NO Resulting Agency Comment Performing Organization Information: Site ID: [facility] Name: [facility] Address: [address] [place] [phone] Director: Kami Albrecht Performing Organization Address [facility]/Zipcode Phone Number [facility] [place] [address] [place] [phone] * Serum electrophoresis (03/17/2018 2:00 PM CDT) [facility] Protein 7.3 6.1 - 8.1 g/dL [facility] Albumin, S 4.4 3.8 - 4.8 g/dL [facility] Rdoom-0-twkndue 0.2 0.2 - 0.3 g/dL [facility] Zspnu-2-czsvoqk 0.6 0.5 - 0.9 g/dL [facility] Beta-1 globulin 0.4 0.4 - 0.6 g/dL [facility] Beta-2 globulin 0.3 0.2 - 0.5 g/dL [facility] Gamma, CSF 1.3 0.8 - 1.7 g/dL [facility] Interpretation Comment: [facility] Normal Electrophoretic Pattern [facility] II Specimen Blood Narrative Performed At FASTING:NO [facility] FASTING: NO Resulting Agency Comment Performing Organization Information: Site ID: [id number] [facility]: [facility] Address: [address] [place] [phone] Director: Dr. Rinku Bruce Performing Organization Address [facility] Phone Number [facility] [address] II * Creatine kinase, total (CPK) (03/17/2018 2:00 PM CDT) [facility] Creatine kinase 102 29 - 143 U/L [facility] [place] Specimen Blood Narrative Performed At FASTING:NO [facility] FASTING: NO Resulting Agency Comment Performing Organization Information: Site ID: [facility] Name: [facility] Address: [address] [place] [phone] Director: Kami Albrecht Performing Organization Address City/State/[facility] Phone Number [facility] [address] [address] * Comprehensive metabolic panel (03/17/2018 2:00 PM CDT) [facility] Glucose 70 65 - 139 mg/dL [facility] Comment: [facility] Non-fasting [place] reference interval BUN, whole 19 7 - 25 mg/dL [facility] blood [facility] [place] Creatinine 0.50 (L) 0.60 - 0.93 mg/dL [facility] Comment: DIAG[facility]STICS For patients >49 years of age, [place] the reference limit for Creatinine is approximately 13% higher for people identified as -[place]. EGFR Non-Afr. 93 > OR=60 [facility] [place] mL/min/1.73m2 [facility] [place] EGFR 108 > OR=60 [facility] [place] mL/min/1.73m2 [facility] [place] BUN/creatinine 38 (H) 6 - 22 (calc) [facility] ratio [facility] [place] Sodium 138 135 - 146 mmol/L [facility] [place] Potassium 4.3 3.5 - 5.3 mmol/L [facility] [place] Chloride 102 98 - 110 mmol/L [facility] [place] CO2 31 20 - 32 mmol/L [facility] [place] Calcium 9.7 8.6 - 10.4 mg/dL [facility] [place] Protein 7.3 6.1 - 8.1 g/dL [facility] [place] Albumin, S 4.2 3.6 - 5.1 g/dL [facility] [place] Globulin, total 3.1 1.9 - 3.7 g/dL [facility] (calc) [facility] [place] Albumin/globuli 1.4 1.0 - 2.5 (calc) [facility] n ratio [facility] [place] Total bilirubin 0.3 0.2 - 1.2 mg/dL [facility] [place] Alkaline 60 33 - 130 U/L [facility] phosphatase [facility] [place] AST 20 10 - 35 U/L [facility] [place] ALT 12 6 - 29 U/L [facility] [place] Specimen Blood Narrative Performed At FASTING:NO [facility] FASTING: NO Resulting Agency Comment Performing Organization Information: Site ID: [id number] Name: [facility] Address: [address] [place] [phone] Director: Kami Albrecht Performing Organization Address City/State/Zipcode Phone Number [facility] [place] [address] [place] [address] after 03/15/2018 Insurance Type Payer Benefit Subscriber ID Effective Phone Address Plan / Dates Group Medicare MEDICARE MEDICARE xxxxxxxxxxx 2006-P [place], PART A AND resent [place] B Commercial AARP AARP xxxxxxxxxxx 2015-P SUPPLEMENT resent Advance Directives For more information, please contact: [phone] Patient Sql Manager Explanation Type Date Recorded Advance Directives, Living Will and Medical Power of Piece Goods Clerk
--- OUTSIDE RECORDS SUMMARY | 2019-03-16 17:56 | XMS REPORT ---
Author Author [facility] Address Unknown Phone Unavailable Care Team Providers Care Shipfitters Supervisor Name Role Phone Unavailable Unavailable Problems This patient has no known problems. Allergies, Adverse Reactions, Alerts This patient has no known allergies or adverse reactions. Medications This patient has no known medications.
--- OUTSIDE RECORDS SUMMARY | 2019-03-16 17:57 | XMS REPORT ---
Author Author Hernan Merrill [facility] eClinical[employer] Address Unknown Phone Unavailable Care Team Providers Care Crime Lab Technician Name Role Phone Hernan Merrill CP Unavailable Allergies, Adverse Reactions, Alerts Substance Reaction Event Type N.K.D.A. Info Not Available Non Drug Allergy Problems Problem Type Condition Code Onset Dates Condition Status Problem Hearing loss, Sensorineural - Asymmetrical H90.5 Active Problem Dizziness and giddiness R42 Active Problem Sinusitis - Chronic J32.8 Active Assessment Insomnia, unspecified G47.00 Active Assessment Hearing loss - Sensorineural Bilateral H90.3 Active Assessment Cellulitis of face L03.211 Active Problem Insomnia, unspecified G47.00 Active Problem Cellulitis of face L03.211 Active Problem Hearing loss - Sensorineural Bilateral H90.3 Active Problem Xerostomia R68.2 Active Problem Benign paroxysmal vertigo, bilateral H81.13 Active Problem Sicca syndrome, unspecified M35.00 Active Problem Dry eye syndrome of unspecified lacrimal gland H04.129 Active Medications Medication Code System Code Instructions Start Date End Date Status Dosage Vitamin B12 [facility] 19093604071 3000 MCG/ML Sublingual Active not defined Pilocarpine HCl ND 57091469933 5 MG Orally Twice a day Aug 04, 2016 Active 1 tablet Mupirocin ND 73739915934 2 % Externally BID Aug 04, 2018 Aug 19, 2018 Active 1 application to affected area Dymista ND 22604382409 137-50 MCG/ACT Nasally Twice a day Jul 28, 2016 Active 1 puff in each nostril Vitamin C ND 94836870476 500 MG Orally Active not defined Levothyroxine Sodium ND 87139757843 75 MCG Orally Once a day Active 1 tablet on an empty stomach in the morning [place] 3 ND 91442370105 340 MG Orally Once a day Active 1 capsule Unknown NDC 0 : Pro B-PRN and Bio X4-TID Active not defined Premarin ND 30076545388 0.3 MG Orally twice a week Active 1 tablet Eye Drops Relief NDC 0 Active not defined Calcium + D [facility] 74683084777 500-1000-40 MG-UNT-MCG Orally Active not defined Pilocarpine HCl [facility] 34217078545 5 MG Orally Once a day for 1 week then twice a day for 3 week Jun 24, 2016 Active 1 tablet Evoxac [facility] 11487666133 30 MG Orally Three times a day Jul 28, 2016 Active 1 capsule Ropinirole HCl [facility] 12940902575 1 MG Orally Active not defined Temazepam [facility] 57581589136 30 MG Orally Once a day Active 1 capsule at bedtime as needed Probiotic [facility] 47278394188 - Orally Active not defined Tramadol HCl [facility] 16193504888 50 MG Orally Active 1 tablet as needed Results No Known Results Summary Purpose eClinicalWorks Submission
--- OUTSIDE RECORDS SUMMARY | 2019-03-16 17:57 | XMS REPORT | Summary of Care ---
Author Author [facility] - Health Organization [facility] - Health Address Unknown Phone Unavailable Care Team Providers Care Rn Referral Name Role Phone Pcp, Patient Does Not Have A PCP Reason for Visit * Reason Comments Transition Of Care Encounter Details Care Team Description Date Type Department Es Morales RN [address] [place] [id number] Transition Of Care 02/20/2019 Transition of [facility] Allergies Comments Active Allergy Reactions Severity Noted Date Onion Diarrhea 02/16/2019 Azithromycin Unknown - See 03/18/2010 comments documented as of this encounter (statuses as of 02/20/2019) Medications End Date Status Medication Sig Dispensed Refills Start Date Active MIRALAX 17 GRAM (100 %) 17 grams PO 0 ORAL PWPK daily prn Active 16.2 MG ORAL TAB one tab po 0 once daily Active SULINDAC 200 MG ORAL TAB one tab po 0 BID Active HYDROXYCHLOROQUINE 200 MG one tab po 0 ORAL TAB once daily Active ascorbic acid, vitamin C, None Entered 0 (VITAMIN C) 500 mg tablet Active VITAMIN E 1,000 UNIT ORAL daily 0 CAP Active VITAMIN B-12 ORAL daily 0 Active CALCIUM + VITAMIN D ORAL daily 0 Active FLAXSEED OIL MISC prn daily 0 Active GLUCOSAMINE CHONDROITIN daily 0 SMCONC ORAL Active OCUVITE ORAL daily 0 Active FOSAMAX 70 MG ORAL TAB once weekly 0 Active LUNESTA 2 MG ORAL TAB one tab po 10 0 qhs 9 Active TRIAMCINOLONE ACETONIDE Press a small 1 week 0 0.1 % DENTAL dab (about 9 PSTEIndications: Oral 1/4 inch) to aphthae the lesion until a thin film develops. Active LORazepam (ATIVAN) 2 mg Take 1 Tab by 30 Tab 5 tabletIndications: mouth every 1 Insomnia 24 (twenty-four) hours as needed (anxiety). Active ropinirole (REQUIP) 0.5 Take 1 Tab by 30 Tab 5 mg tabletIndications: mouth at 1 Restless legs syndrome bedtime. (RLS) Active midodrine (PROAMATINE) Take 1 Tab by 90 Tab 5 2.5 mg tablet mouth 3 1 (three) times daily. Active levothyroxine (SYNTHROID) Take 1 Tab by 30 Tab 0 75 mcg tablet mouth daily. 1 Active Lactobacillus acidophilus Take by 0 (PROBIOTIC ACIDOPHILUS mouth. ORAL) Active diazePAM 10 mg tablet Take 10 mg by 0 mouth at bedtime. Active traMADol 50 mg tablet Take 50 mg by 0 mouth every 6 (six) hours as needed. Active carboxymethylcellulose Place in 0 sodium (REFRESH CELLUVISC each eye. OPHTHALMIC) Active estrogens, conjugated Insert into 0 (PREMARIN VAGINAL) vagina. Active timolol 0.5 % ophthalmic Place 1 Drop 0 solution in both eyes 2 (two) times daily. Active bimatoprost (LUMIGAN) Place 0.01 0 0.01 % ophthalmic drops Drops in each eye at bedtime. Active lifitegrast (XIIDRA) 5 % Place in 0 Dpet each eye. 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 documented as of this encounter Last Filed Vital Signs Not on filedocumented in this encounter Plan of Treatment Health Maintenance Due Date Last Done Comments DTaP,Tdap,and Td Vaccines 02/28/1960 (1 - Tdap) Zoster Recombinant 1991 Vaccine (SHINGRIX) (1 of 2) Medicare Wellness Visit 2006 Osteoporosis Screening 2006 PNEUMOCOCCAL VACCINES 65+ 2006 (1 of 2 - PCV13) INFLUENZA VACCINE (#1) 2019 2015 documented as of this encounter Results Not on filedocumented in this encounter Insurance Type Payer Benefit Subscriber ID Effective Phone Address Plan / Dates Group Medicare MEDICARE MEDICARE xxxxxxxxxx 2006-P [phone] resent [id number] [place] [address] Medicare Supplement AARP-[facility] [id number] 2018-P [address] [employer] resent [id number] MEDICARE [place] SUPPLEMENT [place] [id number] documented as of this encounter
--- OUTSIDE RECORDS SUMMARY | 2019-03-16 17:57 | XMS REPORT | Summary of Care ---
Author Author Bernice Brewster Unknown Address Unknown Phone Unavailable Care Team Providers Care Lens Cutter Name Role Phone KAY CAMARILLO M.D. 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 Active ROPINIRole HCl - 1 MG Oral Tablet * Refills: 0 Active Levothyroxine Sodium 75 MCG Oral Tablet TAKE 1 TABLET DAILY. * Refills: 0 Active TraMADol HCl - 50 MG Oral Tablet TAKE 1 TABLET EVERY 6 HOURS NEEDED FOR PAIN. * Quantity: 120 Refills: 3 MARQUISE Aldridge, KAY Active Allergies and Adverse Reactions Name Dates Details No Known Drug Allergies (Allergy) Status: Active Procedures Procedure Dates Details Procedures not documented Immunization Name Dates Details Immunizations not documented Social History Name Dates Details Unknown if ever smoked Vital Signs Date Test Result Details [id number] BP Systolic 137 mm[Hg] Status: BP Diastolic 63 mm[Hg] Status: Height 60 in Status: Weight 120 lb Status: Body Mass Index Calculated 23.44 kg/m2 Status: Body Surface Area Calculated 1.5 m2 Status: Heart Rate 51 /min Status: [id number] BP Systolic 131 mm[Hg] Status: BP Diastolic 61 mm[Hg] Status: Height 60 in Status: Weight 120 lb Status: Body Mass Index Calculated 23.44 kg/m2 Status: Body Surface Area Calculated 1.5 m2 Status: Heart Rate 75 /min Status: Results Date Description Value Details Results not documented Plan of Care Name Dates Details Planned Observations Planned Goals not documented Planned Encounters Appointment; LEIGH ANN COHN DMD On: 17-Jul-2018 14:00 Interventions Provided Plan* Continue the treatment with Klonopin ODT, discussed about the gradual reduction of frequency of the medication. Recommended and given information related OTC dry mouth treatment (XyliMelts). 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 * Return Visit Follow-up 3 months Instructions Name Dates Details Instructions not documented Encounters Appointment; KAY CAMARILLO M.D. Encounter Diagnosis: Problem not documented On: 08-Feb-2017 13:00 Appointment; KAY CAMARILLO M.D. Encounter Diagnosis: Problem not documented On: 08-Feb-2017 13:00 Appointment; KAY CAMARILLO M.D. Encounter Diagnosis: Problem not documented On: 24-Mar-2017 11:30 Appointment; LEIGH ANN COHN DMD Encounter Diagnosis: Problem not documented On: 20-Mar-2018 13:30 Appointment; LEIGH ANN COHN DMD Encounter Diagnosis: Problem not documented On: 17-Apr-2018 14:00
--- OUTSIDE RECORDS SUMMARY | 2019-03-16 17:57 | XMS REPORT ---
Author Author Hernan Merrill Organization eClinicalWorks Address Unknown Phone Unavailable Care Team Providers Care Commissary Steward Name Role Phone Hernan Merrill CP Unavailable Allergies No Known Allergies Problems Problem Type Condition Code Onset Dates Condition Status Problem Dry eye syndrome of unspecified lacrimal gland H04.129 Active Problem Sicca syndrome, unspecified M35.00 Active Problem Xerostomia R68.2 Active Problem Sinusitis - Chronic J32.8 Active Problem Hearing loss, Sensorineural - Asymmetrical H90.5 Active Problem Dizziness and giddiness R42 Active Problem Benign paroxysmal vertigo, bilateral H81.13 Active Medications No Known Medications Results No Known Results Summary Purpose eClinicalWorks Submission
--- OUTSIDE RECORDS SUMMARY | 2019-03-16 17:57 | XMS REPORT | Summary of Care ---
Author Author [facility] - Health Organization [facility] - Health Address Unknown Phone Unavailable Care Team Providers Care Restorative Aide Name Role Phone Pcp, Patient Does Not Have A PCP Reason for Referral * (Routine) Referred By Contact Referred To Contact Status Reason Specialty Diagnoses / Procedures Teri Chaidez MD [address] [place] [address] New Request PN-NEUROLOGY Diagnoses Syncope, unspecified syncope type P rocedures Discharge Follow-Up: Specialty Service PN-NEUROLOGY ; 2 Weeks * (Routine) Referred By Contact Referred To Contact Status Reason Specialty Diagnoses / Procedures Baron, Shanice, [employer] [address] [facility] [place] [address] Pcp, Patient Does Not Have A [address] [place] [address] New Request Diagnoses Syncope, unspecified syncope type P rocedures Discharge Follow-up: PCP PATIENT DOES NOT HAVE A PCP; 2 Weeks * MRI/CAT Scan (Routine) Referred By Contact Referred To Contact Status Reason Specialty Diagnoses / Procedures Teri Chaidez MD [address] [facility] [address] [place] [address] New Request Diagnostic Diagnoses Radiology Fall, initial encounter Syncope, unspecified syncope type Leg weakness, bilateral Disequilibrium syndrome P rocedures MR LUMBAR SPINE WO CONTRAST * MRI/CAT Scan (Routine) Referred By Contact Referred To Contact Status Reason Specialty Diagnoses / Procedures Teri Chaidez MD [address] [place] [address] New Request Diagnostic Diagnoses Radiology Fall, initial encounter Syncope, unspecified syncope type Leg weakness, bilateral Disequilibrium syndrome P rocedures MR CERVICAL SPINE WO CONTRAST * MRI/CAT Scan (Routine) Referred By Contact Referred To Contact Status Reason Specialty Diagnoses / Procedures Teri Chaidez MD [address] [place] [address] New Request Diagnostic Diagnoses Radiology Fall, initial encounter Syncope, unspecified syncope type Leg weakness, bilateral Disequilibrium syndrome P rocedures MR BRAIN W WO CONTRAST * MRI/CAT Scan (Routine) Referred By Contact Referred To Contact Status Reason Specialty Diagnoses / Procedures Teri Chaidez MD [address] [place] [address] New Request Diagnostic Diagnoses Radiology Fall, initial encounter Syncope, unspecified syncope type Leg weakness, bilateral Disequilibrium syndrome P rocedures MR LUMBAR SPINE WO CONTRAST * MRI/CAT Scan (Routine) Referred By Contact Referred To Contact Status Reason Specialty Diagnoses / Procedures Teri Chaidez MD [address] [place] [address] New Request Diagnostic Diagnoses Radiology Fall, initial encounter Syncope, unspecified syncope type Leg weakness, bilateral Disequilibrium syndrome P rocedures MR CERVICAL SPINE WO CONTRAST * MRI/CAT Scan (Routine) Referred By Contact Referred To Contact Status Reason Specialty Diagnoses / Procedures Teri Chaidez MD [address] [place] [address] New Request Diagnostic Diagnoses Radiology Fall, initial encounter Syncope, unspecified syncope type Leg weakness, bilateral Disequilibrium syndrome P rocedures MR BRAIN W WO CONTRAST * (Routine) Referred By Contact Referred To Contact Status Reason Specialty Diagnoses / Procedures Yifan Chaudhary MD [address] [place] [address] New Request Procedures CAROTID DUPLEX BILATERAL BY VASCULAR LAB * (Routine) Referred By Contact Referred To Contact Status Reason Specialty Diagnoses / Procedures Yifan Chaudhary MD [address] [place] [address] New Request Procedures CAROTID DUPLEX BILATERAL BY VASCULAR LAB * Radiology Services (STAT) Referred By Contact Referred To Contact Status Reason Specialty Diagnoses / Procedures Les Collier, DO [address] [place] [address] New Request Diagnostic Diagnoses Radiology Fall, initial encounter P rocedures XR FEMUR 2 VW RIGHT * Radiology Services (STAT) Referred By Contact Referred To Contact Status Reason Specialty Diagnoses / Procedures Les Collier, DO [address] [place] [address] New Request Diagnostic Diagnoses Radiology Fall, initial encounter P rocedures XR FEMUR 2 VW LEFT * Radiology Services (STAT) Referred By Contact Referred To Contact Status Reason Specialty Diagnoses / Procedures Les Collier, DO [address] [place] [address] New Request Diagnostic Diagnoses Radiology Fall, initial encounter P rocedures XR PELVIS <3 VW * MRI/CAT Scan (STAT) Referred By Contact Referred To Contact Status Reason Specialty Diagnoses / Procedures Les Collier, DO [address] [place] [address] New Request Diagnostic Diagnoses Radiology Fall, initial encounter P rocedures CT CERVICAL SPINE WO CONTRAST * MRI/CAT Scan (STAT) Referred By Contact Referred To Contact Status Reason Specialty Diagnoses / Procedures Les Collier, DO [address] [place] [address] New Request Diagnostic Diagnoses Radiology Fall, initial encounter P rocedures CT HEAD WO CONTRAST * Radiology Services (STAT) Referred By Contact Referred To Contact Status Reason Specialty Diagnoses / Procedures Les Collier, DO [address] [place] [address] New Request Diagnostic Diagnoses Radiology Fall, initial encounter P rocedures Chest 1 View * Radiology Services (STAT) Referred By Contact Referred To Contact Status Reason Specialty Diagnoses / Procedures Les Collier, DO [address] [place] [address] New Request Diagnostic Diagnoses Radiology Fall, initial encounter P rocedures XR FEMUR 2 VW RIGHT * Radiology Services (STAT) Referred By Contact Referred To Contact Status Reason Specialty Diagnoses / Procedures Les Collier, DO [address] [place] [address] New Request Diagnostic Diagnoses Radiology Fall, initial encounter P rocedures XR FEMUR 2 VW LEFT * Radiology Services (STAT) Referred By Contact Referred To Contact Status Reason Specialty Diagnoses / Procedures Les Collier, DO [address] [place] [address] New Request Diagnostic Diagnoses Radiology Fall, initial encounter P rocedures XR PELVIS <3 VW * MRI/CAT Scan (STAT) Referred By Contact Referred To Contact Status Reason Specialty Diagnoses / Procedures Les Collier DO [address] [place] [address] New Request Diagnostic Diagnoses Radiology Fall, initial encounter P rocedures CT CERVICAL SPINE WO CONTRAST * MRI/CAT Scan (STAT) Referred By Contact Referred To Contact Status Reason Specialty Diagnoses / Procedures Les Collier DO [address] [place] [address] New Request Diagnostic Diagnoses Radiology Fall, initial encounter P rocedures CT HEAD WO CONTRAST * Radiology Services (STAT) Referred By Contact Referred To Contact Status Reason Specialty Diagnoses / Procedures Les Collier, DO [address] [place] [address] New Request Diagnostic Diagnoses Radiology Fall, initial encounter P rocedures Chest 1 View Reason for Visit * Reason Comments Fall ULTRASOUND * Auth/Cert Referred By Contact Referred To Contact Status Reason Specialty Diagnoses / Procedures [facility] [address] [place] [address] Emergency Medicine Encounter Details Care Team Description Date Type Department Les Collier DO [address] [place] [address] Ami Crowe MD [address] [place] [address] Syncope 02/16/[address] [facility] Health - Medicine/Surgery [facility] 02/19/2019 [address] [place] [address] Allergies Comments Active Allergy Reactions Severity Noted Date Onion Diarrhea 02/16/2019 Azithromycin Unknown - See 03/18/2010 comments documented as of this encounter (statuses as of 02/19/2019) Medications End Date Status Medication Sig Dispensed [...] % Place in 0 Dpet each eye. 02/19/2019 Discontinued phenobarbital-belladonna Take 1 Tab by 240 Tab 3 alk () mouth. Take 0 16.2-0.1037 -0.0194 mg 1-2 tabs q6h tablet prn 02/19/2019 Discontinued midodrine (PROAMATINE) 5 Take 1 Tab by 90 Tab 5 mg tablet mouth 3 1 (three) times daily. 02/17/[address] 0.5 0 maleate/latanoprost/PF Drops in each (TIMOLOL-LATANOPROST,PF, eye 2 (two) OPHTHALMIC) times daily. documented as of this encounter (statuses as of 02/19/2019) Active Problems Problem Noted Date Leg weakness, bilateral 02/17/2019 Disequilibrium syndrome 02/17/2019 Syncope 02/16/2019 documented as of this encounter (statuses as of 02/19/2019) Social History Date Tobacco Use Types Packs/Day Years Used Never Smoker Smokeless Tobacco: Never Used Sex Assigned at Date Recorded Not on file Industry Job Start Date Occupation Not on file Not on file Not on file Travel End Travel History Travel Start No recent travel history available. documented as of this encounter Last Filed Vital Signs Reading Time Taken Comments Vital Sign 121/72 02/19/2019 11:00 AM CDT Blood Pressure 74 02/19/2019 11:00 AM CDT Pulse 35.8 C (96.4 F) 02/19/2019 11:00 AM CDT Temperature 18 02/19/2019 11:00 AM CDT Respiratory Rate 98% 02/19/2019 11:00 AM CDT Oxygen Saturation - - Inhaled Oxygen Concentration 73.3 kg (161 lb 8 oz) 02/16/2019 2:16 PM CDT Weight 152.4 cm (5') 02/16/2019 2:16 PM CDT Height 31.54 02/16/2019 2:16 PM CDT Body Mass Index documented in this encounter Discharge Instructions * Attachments The following attachments cannot be sent through Care Everywhere.* Dizziness or Syncope (Fainting) During (Maldivian) * Dizziness, Balance Problems, and Fainting, Understanding (Maldivian) * Syncope, Causes of (Maldivian) * Syncope, Treating: Prevention (Maldivian) documented in this encounter Progress Notes * Ramiro Baron MD - 02/19/2019 4:42 PM CDT [facility] Cardiology Progress Note Subjective: Denies chest pain or shortness of breath. No further falls. Objective: BP 121/72 | Pulse 74 | Temp 35.8 C (96.4 F) (Tympanic) | Resp 18 | Ht 5' (1.524 m) | Wt 161 lb 8 oz (73.3 kg) | SpO2 98% | BMI 31.54 kg/m General: Awake and alert. No acute distress. Lungs: Clear to auscultation bilaterally. No wheezes/crackles. CV: Normal rate. Regular rhythm. No murmur. Normal S1 and S2. Abd: Soft, non-tender. Ext: No edema. Current Facility-Administered Medications Medication Dose Route Frequency Last Rate Last Dose latanoprost (XALATAN) 0.005 % ophthalmic drops 1 Drop 1 Drop Both Eyes QPM 1 Drop at 02/18/19 1808 levothyroxine (SYNTHROID) tablet 75 mcg 75 mcg Oral QAM-0600 75 mcg at 0558 timolol (TIMOPTIC) 0.5 % ophthalmic solution 1 Drop 1 Drop Both Eyes BID 1 Drop at 02/19/19 0921 traMADol (ULTRAM) tablet 50 mg 50 mg Oral Q6HPRN 50 mg at 02/18/19 1021 acetaminophen (TYLENOL) tablet 650 mg 650 mg Oral Q6HPRN 650 mg at 2107 diazePAM (VALIUM) tablet 10 mg 10 mg Oral QHS 10 mg at 02/18/192029 docusate (COLACE) capsule 100 mg 100 mg Oral DAILY enoxaparin (LOVENOX) injection 40 mg 40 mg Subcutaneous DAILY 40 mg at 1016 Polyethylene Glycol 3350 (MIRALAX) powder 17 g 17 g Oral BID 17 g at 02/01 Telemetry: Normal sinus rhythm Assessment: 1. Fall versus syncope 2. Sjogren's 3. Hypothyroidism Plan: - Monitor on telemetry. No arrhythmia seen thus far. - Echo with normal LV systolic function. No significant valvular abnormalities. - Check orthostatic vitals. - Carotid Doppler pending. - Neurology evaluation in progress. - Consider PT evaluation. * Teri Chaidez MD - 02/19/2019 10:59 AM CDT Progress note Neurology DATE OF SERVICE: 02/19/19 Day of Hospitalization: Neurology follow up: For: Recurrent falls SUBJECTIVE: HPI: 78-year-old lady admitted with recurrent falls. She hasn't evaluated by neurol ogist and MRI of the brain and C-spine and lumbar spine had been ordered. She i s oriented for the test to be Done. This morning she went for PT, OT and she sa id that , it it has gone well.. There is no new complaint. At that when she wa lks. Sometimes she cannot walk a straight line. She Sways one side or other. 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 Social History Tobacco Use Smoking status: Never Smoker Smokeless tobacco: Never Used Substance Use Topics Alcohol use: Not on file Drug use: Not on file Allergies Allergen Reactions Onion Diarrhea Zithromax Z-Farhan [Azithromycin] Unknown - See comments Patient Active Problem List Diagnosis Syncope Leg weakness, bilateral Disequilibrium syndrome Meds: Current Facility-Administered Medications: latanoprost (XALATAN) 0.005 % ophthalmic drops 1 Drop, 1 Drop, Both Eyes, Q PM, Yifan Chaudhary MD, 1 Drop at 02/18/19 1808 levothyroxine (SYNTHROID) tablet 75 mcg, 75 mcg, Oral, QAM-0600, Long Chaudhary mmad, MD, 75 mcg at 02/19/19 0558 timolol (TIMOPTIC) 0.5 % ophthalmic solution 1 Drop, 1 Drop, Both Eyes, BID , Yifan Chaudhary MD, 1 Drop at 02/19/19 0921 traMADol (ULTRAM) tablet 50 mg, 50 mg, Oral, Q6HPRN, Yifan Chaudhary MD, 50 mg at 02/18/19 1021 acetaminophen (TYLENOL) tablet 650 mg, 650 mg, Oral, Q6HPRN, Ami Crowe MD, 650 mg at 02/16/19 2108 diazePAM (VALIUM) tablet 10 mg, 10 mg, Oral, QHS, Ami Crowe MD, 10 mg at 0 02/18/192029 docusate (COLACE) capsule 100 mg, 100 mg, Oral, DAILY, Ami Crowe MD enoxaparin (LOVENOX) injection 40 mg, 40 mg, Subcutaneous, DAILY, Ami Crowe MD, 40 mg at 02/18/19 1016 Polyethylene Glycol 3350 (MIRALAX) powder 17 g, 17 g, Oral, BID, Ami Crowe MD, 17 g at 02/18/192029 Continuous Infusions:@[email or web address]@ Review of Systems: Review of Systems Constitutional: Negative. Negative for weight gain and weight loss. HENT: Negative. Negative for ear pain, facial swelling, hearing loss, sore thro at, tinnitus and voice change. Eyes: Negative. Negative for photophobia, pain and visual disturbance. Respiratory: Negative. Negative for cough, chest tightness, shortness of breath and wheezing. Breasts: Negative. Cardiovascular: Negative for chest pain, palpitations and leg swelling. Gastrointestinal: Negative. Negative for abdominal distention, abdominal pain, constipation, diarrhea, nausea and vomiting. Genitourinary: Negative. Negative for dysuria, urgency, flank pain, difficulty urinating and pelvic pain. Musculoskeletal: Positive for back pain and gait problem. Negative for arthralgi as, joint swelling, myalgias, neck pain and neck stiffness. Skin: Negative. Negative for color change, pallor and rash. Neurological: Positive for seizures and weakness. Negative for dizziness, tremor s, syncope, facial asymmetry, speech difficulty, light-headedness, numbness and headaches. Psychiatric/Behavioral: Negative. Negative for agitation, behavioral problems, confusion, decreased concentration, hallucinations, sleep disturbance and suicid al ideas. The patient is not nervous/anxious. Hematological: Negative for cold intolerance and heat intolerance. Endocrine: Endocrine negativeNegative for cold intolerance, heat intolerance, we ight gain and weight loss. OBJECTIVE: Vitals: 02/18/19 0800 02/18/19 1200 02/18/19 1600 02/18/191999 BP: 130/74 132/54 138/61 136/59 Pulse: 64 68 62 73 Resp: 16 16 16 18 Temp: 36.4 C (97.5 F) 35.9 C (96.6 F) 36 C (96.8 F) 36.5 C (97.7 F) TempSrc: Tympanic Tympanic Tympanic Tympanic SpO2: 100% 94% 98% 99% Weight: Height: Physical Exam: Physical Exam Constitutional: She is oriented to person, place, and time. She appears well-dev eloped. HENT: Nose: Nose normal. Eyes: EOM are normal. Neck: Normal range of motion. Cardiovascular: Normal rate. Pulmonary/Chest: Effort normal. Abdominal: Soft. Musculoskeletal: Normal range of motion. Neurological: She is alert and oriented to person, place, and time. No cranial n erve deficit or sensory deficit. She displays a negative Romberg sign. She displ ays seizure activity. Gait abnormal. Coordination normal. Reflex Scores: Tricep reflexes are 2+ on the right side and 2+ on the left side. Bicep reflexes are 2+ on the right side and 2+ on the left side. Brachioradialis reflexes are 2+ on the right side and 2+ on the left side. Patellar reflexes are 2+ on the right side and 2+ on the left side. Achilles reflexes are 2+ on the right side and 2+ on the left side. She is extremely off balance backwardly . If she gets up and down , she gets diz zy and lose equilibrium . Skin: Skin is warm. Psychiatric: Her behavior is normal. Neurologic Exam Mental Status Oriented to person, place, and time. Cranial Nerves CN III, IV, Extraocular motions are normal. Gait, Coordination, and Reflexes Reflexes Right brachioradialis: 2+ Left brachioradialis: 2+ Right biceps: 2+ Left biceps: 2+ Right triceps: 2+ Left triceps: 2+ Right patellar: 2+ Left patellar: 2+ Right achilles: 2+ Left achilles: 2+ Strength Deltoids Triceps Biceps Wrist Extension Wrist Flexion Hand Batch Analyst Upper: R 5/5 5/5 5/5 5/5 5/5 5/5 L 5/5 5/5 5/5 5/5 5/5 5/5 Iliopsoas Quadriceps Knee Flexion Tibialis anterior Gastro- cnemius EHL Lower: R 5/5 5/5 5/5 5/5 5/5 5/5 L 5/5 5/5 4/5 5/5 5/5 5/5 Laboratory: Lab Results Component Value Date WBC 7.08 02/17/2019 HGB 12.7 02/17/2019 HCT 39.7 02/17/2019 PLT 277 02/17/2019 ALT 22 02/16/2019 AST 29 02/16/2019 NA 139 02/17/2019 K 4.5 02/17/2019 CL 107 02/17/2019 BUN 18 02/17/2019 TSH 0.73 01/03/2009 ASSESSMENT/PLAN: Assessment: 1. Recurrent falls: she has dysequilibrium syndrome of elderly, rule out cental vs peripheral. MRI of the brain and C-spine are pending. She is stable. Advised not to look up or backwards. 2. Left leg weakness : possibly lumbar radiculopathy but we have ruled out neur ogenic claudication. She doesn't have any significant pain. She walks wobbly. Patient Active Problem List Diagnosis Syncope Leg weakness, bilateral Disequilibrium syndrome Plan: Will wait for MRI reports for further managements. This is 30 minutes visits. More than half of the time spent with the patient and family discussing problems , going through labs and imaging studies. Time spent in coordinating care with other providers. Note has been written through [facility], has not been revised thoroughly. Some typo mistakes might hapen Call me for any question and concern. Octavio Chaidez MD Neurologist [facility]. ( c) [phone]. * Teri Chaidez MD - 02/19/2019 9:29 AM CDT She is not in the room . Gone for Testing. * Siomara Rogers MD - 02/18/2019 5:12 PM CDT [facility] Cardiology Progress Note Subjective: Denies chest pain or shortness of breath. No further falls. Objective: BP 138/61 | Pulse 62 | Temp 36 C (96.8 F) (Tympanic) | Resp 16 | Ht 1.52 4 m (5') | Wt 73.3 kg (161 lb 8 oz) | SpO2 98% | BMI 31.54 kg/m General: Awake and alert. No acute distress. Lungs: Clear to auscultation bilaterally. No wheezes/crackles. CV: Normal rate. Regular rhythm. No murmur. Normal S1 and S2. Abd: Soft, non-tender. Ext: No edema. Current Facility-Administered Medications Medication Dose Route Frequency Last Rate Last Dose latanoprost (XALATAN) 0.005 % ophthalmic drops 1 Drop 1 Drop Both Eyes QPM 1 Drop at 02/17/19 205 levothyroxine (SYNTHROID) tablet 75 mcg 75 mcg Oral QAM-0600 75 mcg at 0717 timolol (TIMOPTIC) 0.5 % ophthalmic solution 1 Drop 1 Drop Both Eyes BID 1 Drop at 02/18/19 0800 traMADol (ULTRAM) tablet 50 mg 50 mg Oral Q6HPRN 50 mg at 02/18/19 1021 acetaminophen (TYLENOL) tablet 650 mg 650 mg Oral Q6HPRN 650 mg at 210 diazePAM (VALIUM) tablet 10 mg 10 mg Oral QHS 10 mg at 02/17/192051 docusate (COLACE) capsule 100 mg 100 mg Oral DAILY enoxaparin (LOVENOX) injection 40 mg 40 mg Subcutaneous DAILY 40 mg at 1016 Polyethylene Glycol 3350 (MIRALAX) powder 17 g 17 g Oral BID 17 g at 02/01 01/19 0833 Telemetry: Normal sinus rhythm Assessment: 1. Fall versus syncope 2. Sjogren's 3. Hypothyroidism Plan: - Monitor on telemetry. No arrhythmia seen thus far. - Echo with normal LV systolic function. No significant valvular abnormalities. - Check orthostatic vitals. - Carotid Doppler pending. - Neurology evaluation in progress. - Consider PT evaluation. * Yifan Chaudhary MD - 02/18/2019 10:45 AM CDT CLS Progress Note Date of Service: 02/18/2019 10:45 Chief Complaint: Syncope SUBJECTIVE: Patient reports her syncope is better today. She has a history of multiple synco pal episodes in the past. She denies hitting her head yesterday. But she hit her head 1 week ago due to fa ll. Pending MRI. She denies any N/VD Denies any fever chills or rigor. PHYSICAL EXAM: Vitals: 02/17/19 1937 02/17/19 2336 02/18/19 0500 02/18/19 0800 BP: 134/56 126/83 (!) 143/71 130/74 Pulse: 80 68 66 64 Resp: Temp: 37.1 C (98.7 F) 36.9 C (98.5 F) 36.7 C (98 F) 36.4 C (97.5 F) TempSrc: Tympanic Tympanic Tympanic Tympanic SpO2: 97% 95% 93% 100% Weight: Height: O2 Sat: SpO2 readings for the past 24 hrs: SpO2 02/16/19 1113 98 % 02/16/19 1300 97 % 02/16/19 2000 97 % 02/17/19 0000 94 % 02/17/19 0400 96 % 02/17/19 0700 91 % No intake or output data in the 24 hours ending 02/18/19 1045 General: alert and oriented; no apparent distress HEENT: pupils equal, round; extraocular movements intact; oropharynx clear; mois t mucous membranes Lungs: clear to auscultation bilaterally, no crackles, no wheezes, cough is stro ng and effective Cardio: regular rate and rhythm, no murmurs, no gallops Abdomen: soft; non-tender; non-distended; normoactive bowel sounds Extremities: no cyanosis, clubbing or edema LABS/IMAGING - reviewed, pertinent results as below: Recent Results (from the past 48 hour(s)) Urinalysis Collection Time: 02/16/19 12:01 PM Result Value Ref Range APPEARANCE Hazy (A) Clear COLOR Yellow Yellow PH 7.0 4.8 - 8.0 SP GRAVITY 1.005 1.003 - 1.030 GLU U QUAL Normal Normal BLOOD Negative Negative KETONES Negative Negative PROTEIN Negative Negative UROBILIN Normal Normal BILIRUBIN Negative Negative NITRITE Negative Negative LEUK BHAVIN Negative Negative RBC/HPF 1 0 - 3 HPF WBC/HPF <1 0 - 5 HPF BACTERIA Many (A) Negative SQ EPITH 1 <=2 HPF Basic Metabolic Panel (NA, K, CL, CO2, GLUCOSE, BUN, CREATININE, CA) Collection Time: 02/16/19 12:01 PM Result Value Ref Range NA 137 135 - 145 mmol/L K 4.4 3.5 - 5.0 mmol/L CL 103 98 - 108 mmol/L CO2 TOTAL 31 23 - 31 mmol/L AGAP 3 2 - 16 BUN 20 7 - 23 mg/dL GLUCOSE 83 70 - 110 mg/dL CREATININE 0.38 (L) 0.50 - 1.04 mg/dL CALCIUM 9.4 8.6 - 10.6 mg/dL eGFR Calculation (Non-) 164.2 mL/min/1.73m2 eGFR Calculation () 199.0 mL/min/1.73m2 Hepatic Function Panel (ALB, T.PRO, BILI T, BU/BC, ALT, AST, ALK PHOS) Collection Time: 02/16/19 12:01 PM Result Value Ref Range TOTAL BILI 0.3 0.1 - 1.1 mg/dL BILI UNCON 0.3 0.1 - 1.1 mg/dL BILI CONJ 0.0 0.0 - 0.3 mg/dL T PROTEIN 6.4 6.3 - 8.2 g/dL ALBUMIN 3.4 (L) 3.5 - 5.0 g/dL ALK PHOS 53 34 - 122 U/L ALT(SGPT) 22 9 - 51 U/L AST(SGOT) 29 13 - 40 U/L Troponin I Collection Time: 02/16/19 12:01 PM Result Value Ref Range TROPONIN I 0.001 <=0.034 ng/mL aPTT Collection Time: 02/16/19 12:01 PM Result Value Ref Range APTT Patient 32 26 - 36 Seconds Prothrombin Time (PT) / INR Collection Time: 02/16/19 12:01 PM Result Value Ref Range PROTIME PATIENT 10.5 10.1 - 12.6 Seconds INR 1.0 N-TERMINAL PRO-BNP Collection Time: 02/16/19 12:01 PM Result Value Ref Range NT-proBNP 342 <=450 pg/mL CBC WITH DIFFERENTIAL Collection Time: 02/16/19 12:01 PM Result Value Ref Range WBC 5.86 4.30 - 11.10 10*3/L RBC 3.71 (L) 3.93 - 5.25 10*6/L HGB 12.0 11.6 - 15.0 g/dL HCT 36.5 35.7 - 45.2 % MCV 98.4 (H) 80.6 - 95.5 fL MCH 32.3 25.9 - 32.8 pg MCHC 32.9 31.6 - 35.1 g/dL RDW-SD 45.8 39.0 - 49.9 fL RDW-CV 12.6 12.0 - 15.5 % PLT 269 166 - 358 10*3/L MPV 10.0 9.5 - 12.9 fL NRBC/100 WBC 0.0 0.0 - 10.0 /100 WBCs NRBC x10^3 <0.01 10*3/L GRAN MAT (NEUT) % 32.4 % IMM GRAN % 0.20 % LYMPH % 47.8 % MONO % 14.3 % EOS % 4.6 % BASO % 0.7 % GRAN MAT x10^3(ANC) 1.90 1.88 - 7.09 10*3/uL IMM GRAN x10^3 <0.03 0.00 - 0.06 10*3/uL LYMPH x10^3 2.80 1.32 - 3.29 10*3/uL MONO x10^3 0.84 0.33 - 0.92 10*3/uL EOS x10^3 0.27 0.03 - 0.39 10*3/uL BASO x10^3 0.04 0.01 - 0.07 10*3/uL CBC WITH DIFFERENTIAL Collection Time: 02/17/19 4:14 AM Result Value Ref Range WBC 7.08 4.30 - 11.10 10*3/L RBC 3.96 3.93 - 5.25 10*6/L HGB 12.7 11.6 - 15.0 g/dL HCT 39.7 35.7 - 45.2 % MCV 100.3 (H) 80.6 - 95.5 fL MCH 32.1 25.9 - 32.8 pg MCHC 32.0 31.6 - 35.1 g/dL RDW-SD 46.8 39.0 - 49.9 fL RDW-CV 12.6 12.0 - 15.5 % PLT 277 166 - 358 10*3/L MPV 10.4 9.5 - 12.9 fL NRBC/100 WBC 0.0 0.0 - 10.0 /100 WBCs NRBC x10^3 <0.01 10*3/L GRAN MAT (NEUT) % 27.3 % IMM GRAN % 0.10 % LYMPH % 58.3 % MONO % 9.6 % EOS % 4.0 % BASO % 0.7 % GRAN MAT x10^3(ANC) 1.93 1.88 - 7.09 10*3/uL IMM GRAN x10^3 <0.03 0.00 - 0.06 10*3/uL LYMPH x10^3 4.13 (H) 1.32 - 3.29 10*3/uL MONO x10^3 0.68 0.33 - 0.92 10*3/uL EOS x10^3 0.28 0.03 - 0.39 10*3/uL BASO x10^3 0.05 0.01 - 0.07 10*3/uL REACT LYMPHS Rare Basic Metabolic Panel (NA, K, CL, CO2, GLUCOSE, BUN, CREATININE, CA) Collection Time: 02/17/19 4:15 AM Result Value Ref Range NA 139 135 - 145 mmol/L K 4.5 3.5 - 5.0 mmol/L CL 107 98 - 108 mmol/L CO2 TOTAL 27 23 - 31 mmol/L AGAP 5 2 - 16 BUN 18 7 - 23 mg/dL GLUCOSE 85 70 - 110 mg/dL CREATININE 0.42 (L) 0.50 - 1.04 mg/dL CALCIUM 9.2 8.6 - 10.6 mg/dL eGFR Calculation (Non-) 146.3 mL/min/1.73m2 eGFR Calculation () 177.3 mL/min/1.73m2 Xr Femur 2 Vw Left Result Date: 02/16/2019 No fracture Xr Femur 2 Vw Right Result Date: 02/16/2019 No fracture Xr Pelvis <3 Vw Result Date: 02/16/2019 No fracture CURRENT MEDICATIONS - reviewed. Current Facility-Administered Medications Medication Dose Route Frequency Last Rate Last Dose latanoprost (XALATAN) 0.005 % ophthalmic drops 1 Drop 1 Drop Both Eyes QPM 1 Drop at 02/17/192051 levothyroxine (SYNTHROID) tablet 75 mcg 75 mcg Oral QAM-0600 75 mcg at 0717 timolol (TIMOPTIC) 0.5 % ophthalmic solution 1 Drop 1 Drop Both Eyes BID 1 Drop at 02/18/19 0800 traMADol (ULTRAM) tablet 50 mg 50 mg Oral Q6HPRN 50 mg at 02/18/19 1021 acetaminophen (TYLENOL) tablet 650 mg 650 mg Oral Q6HPRN 650 mg at 2107 diazePAM (VALIUM) tablet 10 mg 10 mg Oral QHS 10 mg at 02/17/192051 docusate (COLACE) capsule 100 mg 100 mg Oral DAILY enoxaparin (LOVENOX) injection 40 mg 40 mg Subcutaneous DAILY 40 mg at 1016 Polyethylene Glycol 3350 (MIRALAX) powder 17 g 17 g Oral BID 17 g at 02/01 01/19 0833 ASSESSMENT/PLAN Claire Sol is a 78 year old female admitted to the hospital with: Assessments: 1-Frequent falls, not clear why. She has been evaluated in the past but no diagn osis is reached, It does not seem to be a true syncope. Petit mal, balance issue s, and even cardiac arrhythemia need to be considered. Neurology on the case. Pe nding MRI, possible tomorrow. 2-Falls: Multiple history of fall, with 1 episode of hitting her head 1 week ago . MRI Brain ordered. 3-R/O cardiac arrhythmias: Initial EKG shows Inversion T waves, Echo has been or dered, muffler tender is on the case. Carotid Duplex pending. 4-Leg weakness: Bilateral: 5-Sjogren syndrome 6-Hypothyroidism PLAN: -Carotid Duplex pending -MRI Brain w/wo contrast pending -Evaluate for arrhythmias, ECHO pending. -Appreciate neurology consult -Telemetry -EKG noted. -Appreciate Cardiology consult -CT head is negative for acute process -DVT prophylaxis -BS 100-180 -Pending scans due to weekend. Possible scans tomorrow. Dr. Yifan Chaudhary [phone] * Maureen Echavarria RN - 02/18/2019 10:43 AM CDT Care Management Social Functional Assessment Patient Name: Claire Sol Age: [age] year old Sex: female 9M Previous admit date: N/A Current diagnosis and co-morbidities: syncope Readmission Questions: Was patient discharged from any acute care hospital within the last 30 days: No Social Functional Assessment: Primary language spoken/preferred: Maldivian Mental Status: Alert & Oriented to Person,Place & Time Information given by: Self Patient's support system: Spouse;Child Name and number of support system: Dixon Sol (spouse) [phone]; Basilia nayely Ayaz (daughter) [phone]; Maria Ines Mane (cousin) [phone] Primary Dimension Specification Inspector: Self MPOA: Yes;Same as support system Name and relation to patient (e.g. Halley Jones, daughter): Marielena Jacome [facility] [phone] Living Arrangement: Home: single story Address of living arrangement : [address] [place] [id number] Persons living in home: Self Barriers to returning home: Declining function Baseline functional status- ambulation: Independent Functional status-baseline personal care: Independent Baseline functional status- driving: Independent Baseline functional status- grocery shopping: Independent Functional status-baseline housekeeping: Independent Functional status-baseline meal prep: Independent Current functional status same as prior: No Current functional status- ambulation: Requires minimal to moderate assistance Current functional status- personal care: Requires minimal to moderate assistanc e Current functional status- driving: Requires minimal to moderate assistance Current functional status- grocery shopping: Requires minimal to moderate assist ance Current functional status-house keeping: Requires minimal to moderate assistance Current functional status- meal preparation: Requires minimal to moderate assist ance Do you have a PCP?: Yes Name of PCP: Michael Paz (patient just changed PCP) Home Health Care Agency: No Provider Services: No DME Company: No Equipment: Grab bars;Cane Hemodialysis: No Community resources utilized: None Funding Resources: Medicare A & B;Supplement/Secondary Prescription coverage plan: Medicare Part D Pharmacy where meds are filled: Other Other pharmacy: [facility] [place] Anticipated services prior to disharge: Continue Medical Eval Expected mode of discharge transportation: Personal vehicle;Same as support syst em Additional Recommendations for DC: patient needing PT/OT eval, as she states she has been falling frequently and only has a cane at home, which she was using an d still fell. CM/SW will continue to follow. Patient family to transport patient when medically ready to dc. Additional info required for discharge planning: Pending medical evaluation;Pend ing P/T O/T recommendation Recommended discharge plan: Home with new Home Health;New placement SFA Complete: Social Functional Assessment complete: Yes Alcohol Use Screening (AUDIT-C) How often do you have a drink containing alcohol?: Never SCORE: 0 Did patient elect to have resources provided: No Role of Care Management explained. Maureen Echavarria RN,BSN Nursing Education Consultant Department of Care Management [phone] * Yifan Chaudhary MD - 02/17/2019 8:24 AM CDT CLS Progress Note Date of Service: 02/17/2019 08:25 Chief Complaint: Syncope SUBJECTIVE: Patient reports her syncope is better today. She has a history of multiple synco pal episodes in the past. Reports she urinated in her last encounter. She denies hitting her head yesterday. But she hit her head 1 week ago due to fa ll. She denies any N/VD Denies any fever chills or rigor. PHYSICAL EXAM: Vitals: 02/16/19199902/17/19 0000 02/17/19 0400 02/17/19 0700 BP: (!) 144/60 136/54 132/52 (!) 145/53 Pulse: 61 56 62 61 Resp: 18 18 Temp: 37.1 C (98.8 F) 36.8 C (98.2 F) 36.7 C (98.1 F) 36.4 C (97.5 F) TempSrc: Tympanic Tympanic Tympanic Tympanic SpO2: 97% 94% 96% 91% Weight: Height: O2 Sat: SpO2 readings for the past 24 hrs: SpO2 02/16/19 1113 98 % 02/16/19 1300 97 % 02/16/191999 97 % 02/17/19 0000 94 % 02/17/19 0400 96 % 02/17/19 0700 91 % No intake or output data in the 24 hours ending 02/17/19 0825 General: alert and oriented; no apparent distress HEENT: pupils equal, round; extraocular movements intact; oropharynx clear; mois t mucous membranes Lungs: clear to auscultation bilaterally, no crackles, no wheezes, cough is stro ng and effective Cardio: regular rate and rhythm, no murmurs, no gallops Abdomen: soft; non-tender; non-distended; normoactive bowel sounds Extremities: no cyanosis, clubbing or edema LABS/IMAGING - reviewed, pertinent results as below: Recent Results (from the past 48 hour(s)) Urinalysis Collection Time: 02/16/19 12:01 PM Result Value Ref Range APPEARANCE Hazy (A) Clear COLOR Yellow Yellow PH 7.0 4.8 - 8.0 SP GRAVITY 1.005 1.003 - 1.030 GLU U QUAL Normal Normal BLOOD Negative Negative KETONES Negative Negative PROTEIN Negative Negative UROBILIN Normal Normal BILIRUBIN Negative Negative NITRITE Negative Negative LEUK BHAVIN Negative Negative RBC/HPF 1 0 - 3 HPF WBC/HPF <1 0 - 5 HPF BACTERIA Many (A) Negative SQ EPITH 1 <=2 HPF Basic Metabolic Panel (NA, K, CL, CO2, GLUCOSE, BUN, CREATININE, CA) Collection Time: 02/16/19 12:01 PM Result Value Ref Range NA 137 135 - 145 mmol/L K 4.4 3.5 - 5.0 mmol/L CL 103 98 - 108 mmol/L CO2 TOTAL 31 23 - 31 mmol/L AGAP 3 2 - 16 BUN 20 7 - 23 mg/dL GLUCOSE 83 70 - 110 mg/dL CREATININE 0.38 (L) 0.50 - 1.04 mg/dL CALCIUM 9.4 8.6 - 10.6 mg/dL eGFR Calculation (Non-) 164.2 mL/min/1.73m2 eGFR Calculation () 199.0 mL/min/1.73m2 Hepatic Function Panel (ALB, T.PRO, BILI T, BU/BC, ALT, AST, ALK PHOS) Collection Time: 02/16/19 12:01 PM Result Value Ref Range TOTAL BILI 0.3 0.1 - 1.1 mg/dL BILI UNCON 0.3 0.1 - 1.1 mg/dL BILI CONJ 0.0 0.0 - 0.3 mg/dL T PROTEIN 6.4 6.3 - 8.2 g/dL ALBUMIN 3.4 (L) 3.5 - 5.0 g/dL ALK PHOS 53 34 - 122 U/L ALT(SGPT) 22 9 - 51 U/L AST(SGOT) 29 13 - 40 U/L Troponin I Collection Time: 02/16/19 12:01 PM Result Value Ref Range TROPONIN I 0.001 <=0.034 ng/mL aPTT Collection Time: 02/16/19 12:01 PM Result Value Ref Range APTT Patient 32 26 - 36 Seconds Prothrombin Time (PT) / INR Collection Time: 02/16/19 12:01 PM Result Value Ref Range PROTIME PATIENT 10.5 10.1 - 12.6 Seconds INR 1.0 N-TERMINAL PRO-BNP Collection Time: 02/16/19 12:01 PM Result Value Ref Range NT-proBNP 342 <=450 pg/mL CBC WITH DIFFERENTIAL Collection Time: 02/16/19 12:01 PM Result Value Ref Range WBC 5.86 4.30 - 11.10 10*3/L RBC 3.71 (L) 3.93 - 5.25 10*6/L HGB 12.0 11.6 - 15.0 g/dL HCT 36.5 35.7 - 45.2 % MCV 98.4 (H) 80.6 - 95.5 fL MCH 32.3 25.9 - 32.8 pg MCHC 32.9 31.6 - 35.1 g/dL RDW-SD 45.8 39.0 - 49.9 fL RDW-CV 12.6 12.0 - 15.5 % PLT 269 166 - 358 10*3/L MPV 10.0 9.5 - 12.9 fL NRBC/100 WBC 0.0 0.0 - 10.0 /100 WBCs NRBC x10^3 <0.01 10*3/L GRAN MAT (NEUT) % 32.4 % IMM GRAN % 0.20 % LYMPH % 47.8 % MONO % 14.3 % EOS % 4.6 % BASO % 0.7 % GRAN MAT x10^3(ANC) 1.90 1.88 - 7.09 10*3/uL IMM GRAN x10^3 <0.03 0.00 - 0.06 10*3/uL LYMPH x10^3 2.80 1.32 - 3.29 10*3/uL MONO x10^3 0.84 0.33 - 0.92 10*3/uL EOS x10^3 0.27 0.03 - 0.39 10*3/uL BASO x10^3 0.04 0.01 - 0.07 10*3/uL CBC WITH DIFFERENTIAL Collection Time: 02/17/19 4:14 AM Result Value Ref Range WBC 7.08 4.30 - 11.10 10*3/L RBC 3.96 3.93 - 5.25 10*6/L HGB 12.7 11.6 - 15.0 g/dL HCT 39.7 35.7 - 45.2 % MCV 100.3 (H) 80.6 - 95.5 fL MCH 32.1 25.9 - 32.8 pg MCHC 32.0 31.6 - 35.1 g/dL RDW-SD 46.8 39.0 - 49.9 fL RDW-CV 12.6 12.0 - 15.5 % PLT 277 166 - 358 10*3/L MPV 10.4 9.5 - 12.9 fL NRBC/100 WBC 0.0 0.0 - 10.0 /100 WBCs NRBC x10^3 <0.01 10*3/L GRAN MAT (NEUT) % 27.3 % IMM GRAN % 0.10 % LYMPH % 58.3 % MONO % 9.6 % EOS % 4.0 % BASO % 0.7 % GRAN MAT x10^3(ANC) 1.93 1.88 - 7.09 10*3/uL IMM GRAN x10^3 <0.03 0.00 - 0.06 10*3/uL LYMPH x10^3 4.13 (H) 1.32 - 3.29 10*3/uL MONO x10^3 0.68 0.33 - 0.92 10*3/uL EOS x10^3 0.28 0.03 - 0.39 10*3/uL BASO x10^3 0.05 0.01 - 0.07 10*3/uL REACT LYMPHS Rare Basic Metabolic Panel (NA, K, CL, CO2, GLUCOSE, BUN, CREATININE, CA) Collection Time: 02/17/19 4:15 AM Result Value Ref Range NA 139 135 - 145 mmol/L K 4.5 3.5 - 5.0 mmol/L CL 107 98 - 108 mmol/L CO2 TOTAL 27 23 - 31 mmol/L AGAP 5 2 - 16 BUN 18 7 - 23 mg/dL GLUCOSE 85 70 - 110 mg/dL CREATININE 0.42 (L) 0.50 - 1.04 mg/dL CALCIUM 9.2 8.6 - 10.6 mg/dL eGFR Calculation (Non-) 146.3 mL/min/1.73m2 eGFR Calculation () 177.3 mL/min/1.73m2 Xr Femur 2 Vw Left Result Date: 02/16/2019 No fracture Xr Femur 2 Vw Right Result Date: 02/16/2019 No fracture Xr Pelvis <3 Vw Result Date: 02/16/2019 No fracture CURRENT MEDICATIONS - reviewed. Current Facility-Administered Medications Medication Dose Route Frequency Last Rate Last Dose acetaminophen (TYLENOL) tablet 650 mg 650 mg Oral Q6HPRN 650 mg at 2107 diazePAM (VALIUM) tablet 10 mg 10 mg Oral QHS 10 mg at 02/16/192010 docusate (COLACE) capsule 100 mg 100 mg Oral DAILY enoxaparin (LOVENOX) injection 40 mg 40 mg Subcutaneous DAILY latanoprost (XALATAN) 0.005 % ophthalmic drops 1 Drop 1 Drop Both Eyes QHS 1 Drop at 02/16/19 210 levothyroxine (SYNTHROID) tablet 75 mcg 75 mcg Oral QAM-0600 75 mcg at 0526 morpHINE injection 4 mg 4 mg Slow IV Push Q4HPRN Polyethylene Glycol 3350 (MIRALAX) powder 17 g 17 g Oral BID timolol (TIMOPTIC) 0.5 % ophthalmic solution 1 Drop 1 Drop Both Eyes QHS 1 Drop at 02/16/19 2203 traMADol (ULTRAM) tablet 50 mg 50 mg Oral Q6HPRN ASSESSMENT/PLAN Claire Sol is a 78 year old female admitted to the hospital with: Assessments: 1-frequent falls, not clear why. She has been evaluated in the past but no diagn osis is reached, It does not seem to be a true syncope. Petit mal, balance issue s, and even cardiac arrhythemia need to be considered. 2-Falls: Multiple history of fall, with 1 episode of hitting her head 1 week ago . MRI Brain ordered. 3-R/O cardiac arrhythmias: Initial EKG shows Inversion T waves, Echo has been or dered, muffler tender is on the case. Carotid Duplex pending. 4-Leg weakness: Bilateral: 5-Sjogren syndrome 6-Hypothyroidism PLAN: -Carotid Duplex -MRI Brain w/wo contrast. evaluate for arrythmias -Appreciate neurology consult -Telemetry -Echocardiogram -EKG noted. -Cardiology consult -CT head is negative for acute process -Keep MAP> 65 -Keep SAT> 92% -DVT prophylaxis -BS 100-180 Dr. Yifan Chaudhary [phone] documented in this encounter Plan of Treatment Health Maintenance Due Date Last Done Comments DTaP,Tdap,and Td Vaccines 02/28/1960 (1 - Tdap) Zoster Recombinant 1991 Vaccine (SHINGRIX) (1 of 2) Medicare Wellness Visit 2006 Osteoporosis Screening 2006 PNEUMOCOCCAL VACCINES 65+ 2006 (1 of 2 - PCV13) INFLUENZA VACCINE (#1) 2019 2015 documented as of this encounter Procedures Comments Procedure Name Priority Date/Time Associated Diagnosis MR BRAIN W WO CONTRAST Routine 02/19/2019 Fall, initial encounter 5:16 PM CDT Syncope, unspecified syncope type Leg weakness, bilateral Disequilibrium syndrome MR LUMBAR SPINE WO Routine 02/19/2019 Fall, initial encounter CONTRAST 5:00 PM CDT Syncope, unspecified syncope type Leg weakness, bilateral Disequilibrium syndrome MR CERVICAL SPINE WO Routine 02/19/2019 Fall, initial encounter CONTRAST 4:49 PM CDT Syncope, unspecified syncope type Leg weakness, bilateral Disequilibrium syndrome CAROTID DUPLEX BILATERAL Routine 02/19/2019 BY VASCULAR LAB 9:45 AM CDT BASIC METABOLIC PANEL Routine 02/17/2019 (NA, K, CL, CO2, GLUCOSE, 4:15 AM CDT BUN, CREATININE, CA) CBC WITH DIFFERENTIAL Routine 02/17/2019 4:14 AM CDT CBC WITH DIFF Routine 02/17/2019 4:14 AM CDT ECHO ROUTINE W/DOPPLER Routine 02/16/2019 Fall, initial encounter COLOR 3:34 PM CDT XR PELVIS <3 VW STAT 02/16/2019 Fall, initial encounter 12:43 PM CDT XR FEMUR 2 VW RIGHT STAT 02/16/2019 Fall, initial encounter 12:43 PM CDT XR FEMUR 2 VW LEFT STAT 02/16/2019 Fall, initial encounter 12:43 PM CDT XR CHEST 1 VW STAT 02/16/2019 Fall, initial encounter 12:[address] HEAD WO CONTRAST STAT 02/16/2019 Fall, initial encounter 12:[address] CERVICAL SPINE WO STAT 02/16/2019 Fall, initial encounter CONTRAST 12:38 PM CDT EKG-12 LEAD Routine 02/16/2019 12:11 PM CDT CBC WITH DIFFERENTIAL STAT 02/16/2019 Fall, initial encounter 12:01 PM CDT N-TERMINAL PRO-BNP STAT 02/16/2019 Fall, initial encounter 12:01 PM CDT URINALYSIS STAT 02/16/2019fall, initial encounter 12:01 PM CDT ACTIVATED PARTIAL STAT 02/16/2019fall, initial encounter THRMPLAS ARA 12:01 PM CDT PROTHROMBIN TIME / INR STAT 02/16/2019fall, initial encounter 12:01 PM CDT CBC WITH DIFF Routine 02/16/2019fall, initial encounter 12:01 PM CDT BASIC METABOLIC PANEL STAT 02/16/2019fall, initial encounter (NA, K, CL, CO2, GLUCOSE, 12:01 PM CDT BUN, CREATININE, CA) HEPATIC FUNCTION PANEL STAT 02/16/2019fall, initial encounter (06301) (ALB,T.PRO,BILI 12:01 PM CDT T,BU/BC,ALT,AST,ALK PHOS) TROPONIN I STAT 02/16/2019fall, initial encounter 12:01 PM CDT EKG-12 LEAD STAT 02/16/2019 11:48 AM CDT HOSPITAL ADMISSION Routine 02/16/2019 12:01 AM CDT documented in this encounter Results * MR BRAIN W WO CONTRAST (02/19/2019 5:16 PM CDT) Specimen Impressions Performed At No acute intracranial abnormality. PACS/VR/DOSE No abnormality of the CP angles or IACs to account for patient's symptoms. Narrative Performed At * * * * * * * * ORIGINAL REPORT * * * * * * * * PACS/VR/DOSE EXAM: MR BRAIN W WO CONTRAST HISTORY: balance problem TECHNIQUE: MRI of the brain was performed on 1.5 Naty before and after intravenous administration of 12 mL of Dotarem utilizing acoustic protocol. COMPARISON: CT head dated 02/16/2019. FINDINGS: The ventricles and sulci are prominent suggestive of mild degree of global cerebral volume loss. No hydrocephalus. The basal cisterns are within normal limits. There is no diffusion restriction suggest acute/subacute infarction. No intracranial hemorrhage, extra-axial collection, mass effect, midline shift, or herniation. No abnormal signal Blooming on gradient sequences. No abnormal intracranial enhancement. No lesion or abnormal enhancement of the CP angles or internal auditory canals. The vestibulocochlear nerves are unremarkable. Normal T2 hyperintense signal of the inner ears structures. No abnormal signal in the paranasal sinuses or mastoid air cells. Procedure Note [facility], Radiant Results Inft User - 02/19/2019 5:43 PM CDT * * * * * * * * ORIGINAL REPORT * * * * * * * * EXAM: MR BRAIN W WO CONTRAST HISTORY: balance problem TECHNIQUE: MRI of the brain was performed on 1.5 Naty before and after intravenous administration of 12 mL of Dotarem utilizing acoustic protocol. COMPARISON: CT head dated 02/16/2019. FINDINGS: The ventricles and sulci are prominent suggestive of mild degree of global cerebral volume loss. No hydrocephalus. The basal cisterns are within normal limits. There is no diffusion restriction suggest acute/subacute infarction. No intracranial hemorrhage, extra-axial collection, mass effect, midline shift, or herniation. No abnormal signal Blooming on gradient sequences. No abnormal intracranial enhancement. No lesion or abnormal enhancement of the CP angles or internal auditory canals. The vestibulocochlear nerves are unremarkable. Normal T2 hyperintense signal of the inner ears structures. No abnormal signal in the paranasal sinuses or mastoid air cells. IMPRESSION No acute intracranial abnormality. No abnormality of the CP angles or IACs to account for patient's symptoms. Performing Organization Address City/State/Zipcode Phone Number PACS/VR/DOSE * MR LUMBAR SPINE WO CONTRAST (02/19/2019 5:00 PM CDT) Specimen Impressions Performed At CERVICAL SPINE PACS/VR/DOSE Multilevel spondylosis and spondyloarthropathy, as above, results in mild spinal canal stenosis at C3-C4 and C5-C6. Moderate neural foraminal narrowing at C3-C4, C5-C6 and C6-C7. No abnormal cervical cord signal. LUMBAR SPINE Mild spinal canal stenosis at L3-L4 and L4-L5. An additional multilevel spondylosis and spondyloarthropathy without causing high-grade spinal canal stenosis. Narrative Performed At * * * * * * * * ORIGINAL REPORT * * * * * * * * PACS/VR/DOSE EXAM: MR CERVICAL SPINE WO CONTRAST, MR LUMBAR SPINE WO CONTRAST HISTORY: leg weakness TECHNIQUE: MRIs of cervical and lumbar spine were performed on 1.5 Naty without intravenous contrast. COMPARISON: None. FINDINGS: CERVICAL SPINE There is reversal of cervical lordosis at C3-C6. The vertebral bodies are normal in height and alignment. Partial osseous fusion of the C4-C5 vertebral bodies noted. Modic type II endplate degenerative changes are noted at C3-C6. The background bone marrow signal is otherwise unremarkable. The cervical cord is normal in morphology and demonstrates normal signal intensity. Severe disc desiccation and disc height loss is noted at C3-C6. At C2-C3, no high-grade spinal canal stenosis or significant neural foraminal narrowing. At C3-C4, posterior disc osteophyte complex with uncovertebral arthrosis and ligamentum flavum thickening results in mild spinal canal stenosis and moderate bilateral neural foraminal narrowing. At C4-C5, posterior osteophytes noted. No high-grade spinal canal stenosis or significant neural foraminal narrowing. At C5-C6, posterior disc osteophyte complex with uncovertebral and facet arthrosis result in mild spinal canal stenosis and mild to moderate bilateral neural foraminal narrowing. At C6-C7, posterior disc osteophyte complex with uncovertebral arthrosis contribute to moderate bilateral neural foraminal narrowing. No high-grade spinal canal stenosis. At C7-T1, no high-grade spinal canal stenosis or significant neural foraminal narrowing. The prevertebral soft tissues are unremarkable. LUMBAR SPINE MRI There is straightening of lumbar lordosis. The vertebral bodies are normal in height and alignment. Modic type II endplate degenerative changes are noted at L2-L3. Patchy areas of T1/T2 hyperintensity are noted throughout the lumbar spine likely present fatty infiltration and/or hemangiomas. The conus medullaris terminates at L1 and is normal. Cauda equina nerve roots are unremarkable. Severe disc space narrowing and desiccation is noted at L2-L3 and L3-L4. At L1-L2, mild diffuse disc bulge with mild facet arthrosis and ligamentum flavum thickening. No high-grade spinal canal stenosis or significant neural foraminal narrowing. At L2-L3, small posterior osteophytes with ligamentum flavum thickening noted. No high-grade spinal canal stenosis or significant neural foraminal narrowing. At L3-L4, posterior osteophytes with diffuse disc bulge, facet arthrosis and ligamentum flavum thickening contribute to mild spinal canal stenosis and mild bilateral neural foraminal narrowing. At L4-L5, there is diffuse disc bulge with posterior osteophytes and ligamentum flavum thickening contribute to mild spinal canal stenosis and mild bilateral neural foraminal narrowing. At L5-S1, moderate bilateral facet arthrosis. No high-grade spinal canal stenosis or significant graft The paraspinal soft tissues are unremarkable. Procedure Note [facility], Radiant Results Inft User - 02/19/2019 5:33 PM CDT * * * * * * * * ORIGINAL REPORT * * * * * * * * EXAM: MR CERVICAL SPINE WO CONTRAST, MR LUMBAR SPINE WO CONTRAST HISTORY: leg weakness TECHNIQUE: MRIs of cervical and lumbar spine were performed on 1.5 Naty without intravenous contrast. COMPARISON: None. FINDINGS: CERVICAL SPINE There is reversal of cervical lordosis at C3-C6. The vertebral bodies are normal in height and alignment. Partial osseous fusion of the C4-C5 vertebral bodies noted. Modic type II endplate degenerative changes are noted at C3-C6. The background bone marrow signal is otherwise unremarkable. The cervical cord is normal in morphology and demonstrates normal signal intensity. Severe disc desiccation and disc height loss is noted at C3-C6. At C2-C3, no high-grade spinal canal stenosis or significant neural foraminal narrowing. At C3-C4, posterior disc osteophyte complex with uncovertebral arthrosis and ligamentum flavum thickening results in mild spinal canal stenosis and moderate bilateral neural foraminal narrowing. At C4-C5, posterior osteophytes noted. No high-grade spinal canal stenosis or significant neural foraminal narrowing. At C5-C6, posterior disc osteophyte complex with uncovertebral and facet arthrosis result in mild spinal canal stenosis and mild to moderate bilateral neural foraminal narrowing. At C6-C7, posterior disc osteophyte complex with uncovertebral arthrosis contribute to moderate bilateral neural foraminal narrowing. No high-grade spinal canal stenosis. At C7-T1, no high-grade spinal canal stenosis or significant neural foraminal narrowing. The prevertebral soft tissues are unremarkable. LUMBAR SPINE MRI There is straightening of lumbar lordosis. The vertebral bodies are normal in height and alignment. Modic type II endplate degenerative changes are noted at L2-L3. Patchy areas of T1/T2 hyperintensity are noted throughout the lumbar spine likely present fatty infiltration and/or hemangiomas. The conus medullaris terminates at L1 and is normal. Cauda equina nerve roots are unremarkable. Severe disc space narrowing and desiccation is noted at L2-L3 and L3-L4. At L1-L2, mild diffuse disc bulge with mild facet arthrosis and ligamentum flavum thickening. No high-grade spinal canal stenosis or significant neural foraminal narrowing. At L2-L3, small posterior osteophytes with ligamentum flavum thickening noted. No high-grade spinal canal stenosis or significant neural foraminal narrowing. At L3-L4, posterior osteophytes with diffuse disc bulge, facet arthrosis and ligamentum flavum thickening contribute to mild spinal canal stenosis and mild bilateral neural foraminal narrowing. At L4-L5, there is diffuse disc bulge with posterior osteophytes and ligamentum flavum thickening contribute to mild spinal canal stenosis and mild bilateral neural foraminal narrowing. At L5-S1, moderate bilateral facet arthrosis. No high-grade spinal canal stenosis or significant graft The paraspinal soft tissues are unremarkable. IMPRESSION CERVICAL SPINE Multilevel spondylosis and spondyloarthropathy, as above, results in mild spinal canal stenosis at C3-C4 and C5-C6. Moderate neural foraminal narrowing at C3-C4, C5-C6 and C6-C7. No abnormal cervical cord signal. LUMBAR SPINE Mild spinal canal stenosis at L3-L4 and L4-L5. An additional multilevel spondylosis and spondyloarthropathy without causing high-grade spinal canal stenosis. Performing Organization Address City/State/Zipcode Phone Number PACS/VR/DOSE * MR CERVICAL SPINE WO CONTRAST (02/19/2019 4:49 PM CDT) Specimen Impressions Performed At CERVICAL SPINE PACS/VR/DOSE Multilevel spondylosis and spondyloarthropathy, as above, results in mild spinal canal stenosis at C3-C4 and C5-C6. Moderate neural foraminal narrowing at C3-C4, C5-C6 and C6-C7. No abnormal cervical cord signal. LUMBAR SPINE Mild spinal canal stenosis at L3-L4 and L4-L5. An additional multilevel spondylosis and spondyloarthropathy without causing high-grade spinal canal stenosis. Narrative Performed At * * * * * * * * ORIGINAL REPORT * * * * * * * * PACS/VR/DOSE EXAM: MR CERVICAL SPINE WO CONTRAST, MR LUMBAR SPINE WO CONTRAST HISTORY: leg weakness TECHNIQUE: MRIs of cervical and lumbar spine were performed on 1.5 Naty without intravenous contrast. COMPARISON: None. FINDINGS: CERVICAL SPINE There is reversal of cervical lordosis at C3-C6. The vertebral bodies are normal in height and alignment. Partial osseous fusion of the C4-C5 vertebral bodies noted. Modic type II endplate degenerative changes are noted at C3-C6. The background bone marrow signal is otherwise unremarkable. The cervical cord is normal in morphology and demonstrates normal signal intensity. Severe disc desiccation and disc height loss is noted at C3-C6. At C2-C3, no high-grade spinal canal stenosis or significant neural foraminal narrowing. At C3-C4, posterior disc osteophyte complex with uncovertebral arthrosis and ligamentum flavum thickening results in mild spinal canal stenosis and moderate bilateral neural foraminal narrowing. At C4-C5, posterior osteophytes noted. No high-grade spinal canal stenosis or significant neural foraminal narrowing. At C5-C6, posterior disc osteophyte complex with uncovertebral and facet arthrosis result in mild spinal canal stenosis and mild to moderate bilateral neural foraminal narrowing. At C6-C7, posterior disc osteophyte complex with uncovertebral arthrosis contribute to moderate bilateral neural foraminal narrowing. No high-grade spinal canal stenosis. At C7-T1, no high-grade spinal canal stenosis or significant neural foraminal narrowing. The prevertebral soft tissues are unremarkable. LUMBAR SPINE MRI There is straightening of lumbar lordosis. The vertebral bodies are normal in height and alignment. Modic type II endplate degenerative changes are noted at L2-L3. Patchy areas of T1/T2 hyperintensity are noted throughout the lumbar spine likely present fatty infiltration and/or hemangiomas. The conus medullaris terminates at L1 and is normal. Cauda equina nerve roots are unremarkable. Severe disc space narrowing and desiccation is noted at L2-L3 and L3-L4. At L1-L2, mild diffuse disc bulge with mild facet arthrosis and ligamentum flavum thickening. No high-grade spinal canal stenosis or significant neural foraminal narrowing. At L2-L3, small posterior osteophytes with ligamentum flavum thickening noted. No high-grade spinal canal stenosis or significant neural foraminal narrowing. At L3-L4, posterior osteophytes with diffuse disc bulge, facet arthrosis and ligamentum flavum thickening contribute to mild spinal canal stenosis and mild bilateral neural foraminal narrowing. At L4-L5, there is diffuse disc bulge with posterior osteophytes and ligamentum flavum thickening contribute to mild spinal canal stenosis and mild bilateral neural foraminal narrowing. At L5-S1, moderate bilateral facet arthrosis. No high-grade spinal canal stenosis or significant graft The paraspinal soft tissues are unremarkable. Procedure Note [facility], Radiant Results Inft User - 02/19/2019 5:33 PM CDT * * * * * * * * ORIGINAL REPORT * * * * * * * * EXAM: MR CERVICAL SPINE WO CONTRAST, MR LUMBAR SPINE WO CONTRAST HISTORY: leg weakness TECHNIQUE: MRIs of cervical and lumbar spine were performed on 1.5 Naty without intravenous contrast. COMPARISON: None. FINDINGS: CERVICAL SPINE There is reversal of cervical lordosis at C3-C6. The vertebral bodies are normal in height and alignment. Partial osseous fusion of the C4-C5 vertebral bodies noted. Modic type II endplate degenerative changes are noted at C3-C6. The background bone marrow signal is otherwise unremarkable. The cervical cord is normal in morphology and demonstrates normal signal intensity. Severe disc desiccation and disc height loss is noted at C3-C6. At C2-C3, no high-grade spinal canal stenosis or significant neural foraminal narrowing. At C3-C4, posterior disc osteophyte complex with uncovertebral arthrosis and ligamentum flavum thickening results in mild spinal canal stenosis and moderate bilateral neural foraminal narrowing. At C4-C5, posterior osteophytes noted. No high-grade spinal canal stenosis or significant neural foraminal narrowing. At C5-C6, posterior disc osteophyte complex with uncovertebral and facet arthrosis result in mild spinal canal stenosis and mild to moderate bilateral neural foraminal narrowing. At C6-C7, posterior disc osteophyte complex with uncovertebral arthrosis contribute to moderate bilateral neural foraminal narrowing. No high-grade spinal canal stenosis. At C7-T1, no high-grade spinal canal stenosis or significant neural foraminal narrowing. The prevertebral soft tissues are unremarkable. LUMBAR SPINE MRI There is straightening of lumbar lordosis. The vertebral bodies are normal in height and alignment. Modic type II endplate degenerative changes are noted at L2-L3. Patchy areas of T1/T2 hyperintensity are noted throughout the lumbar spine likely present fatty infiltration and/or hemangiomas. The conus medullaris terminates at L1 and is normal. Cauda equina nerve roots are unremarkable. Severe disc space narrowing and desiccation is noted at L2-L3 and L3-L4. At L1-L2, mild diffuse disc bulge with mild facet arthrosis and ligamentum flavum thickening. No high-grade spinal canal stenosis or significant neural foraminal narrowing. At L2-L3, small posterior osteophytes with ligamentum flavum thickening noted. No high-grade spinal canal stenosis or significant neural foraminal narrowing. At L3-L4, posterior osteophytes with diffuse disc bulge, facet arthrosis and ligamentum flavum thickening contribute to mild spinal canal stenosis and mild bilateral neural foraminal narrowing. At L4-L5, there is diffuse disc bulge with posterior osteophytes and ligamentum flavum thickening contribute to mild spinal canal stenosis and mild bilateral neural foraminal narrowing. At L5-S1, moderate bilateral facet arthrosis. No high-grade spinal canal stenosis or significant graft The paraspinal soft tissues are unremarkable. IMPRESSION CERVICAL SPINE Multilevel spondylosis and spondyloarthropathy, as above, results in mild spinal canal stenosis at C3-C4 and C5-C6. Moderate neural foraminal narrowing at C3-C4, C5-C6 and C6-C7. No abnormal cervical cord signal. LUMBAR SPINE Mild spinal canal stenosis at L3-L4 and L4-L5. An additional multilevel spondylosis and spondyloarthropathy without causing high-grade spinal canal stenosis. Performing Organization Address City/[facility]/Zipcode Phone Number PACS/VR/DOSE * Basic Metabolic Panel (NA, K, CL, CO2, GLUCOSE, BUN, CREATININE, CA) (02/17/2019 4:15 AM CDT) NA 139 135 - 145 mmol/L [facility] K 4.5Comment: Slight hemolysis 3.5 - 5.0 mmol/L [facility] CL 107 98 - 108 mmol/L [facility] CO2 TOTAL 27 23 - 31 mmol/L [facility] AGAP 5 2 - [address] [facility] BUN 18Comment: Slight hemolysis 7 - 23 mg/dL [facility] GLUCOSE 85 70 - 110 mg/dL [facility] CREATININE 0.42 (L) 0.50 - 1.04 mg/dL [facility] CALCIUM 9.2 8.6 - 10.6 mg/dL [facility] eGFR 146.3 mL/min/1.73m2 [facility] Calculation [facility] (Non[facility]) eGFR 177.3 mL/min/1.73m2 [facility] Calculation [facility] ([facility]) Specimen Blood - ARM, LEFT Narrative Performed At Association of Glomerular Filtration Rate (GFR) and Staging of Kidney Disease* [facility] + + + + [facility]- [place] | GFR (mL/min/1.73 m2)| With Kidney Damage|Without Kidney Damage CAMPUS + + + + |>90|Stage one| Normal + + + + |60-89|Stage two| Decreased GFR + + + + |30-59|Stage three| Stage three + + + + |15-29|Stage four | Stage four + + + + |<15 (or dialysis)|Stage five | Stage five + + + + *Each stage assumes the associated GFR level has been in effect for at least three months.Stages 1 to 5, with or without kidney disease, indicate chronic kidney disease. Notes: Determination of stages one and two (with eGFR >59mL/min/1.73 m2) requires estimation of kidney damage for at least three months as defined by structural or functional abnormalities of the kidney, manifested by either: Pathological abnormalities or Markers of kidney damage (including abnormalities in the composition of the blood or urine or abnormalities in imaging tests). Performing Organization Address City/State/Zipcode Phone Number [facility] CLIA: [id number], [address], [place] [address] [facility] * CBC WITH DIFFERENTIAL (02/17/2019 4:14 AM CDT) WBC 7.08 4.30 - 11.[address] [facility] 10*3/L [facility] RBC 3.96 3.93 - 5.25 10*6/L [facility] HGB 12.7 11.6 - 15.0 g/dL [facility] HCT 39.7 35.7 - 45.2 % [facility] MCV 100.3 (H) 80.6 - 95.[address] [facility] MCH 32.1 25.9 - 32.[address] [facility] MCHC 32.0 31.6 - 35.1 g/dL [facility] RDW-SD 46.8 39.0 - 49.[address] [facility] RDW-CV 12.6 12.0 - 15.5 % [facility] PLT 277 166 - 358 10*3/L [facility] MPV 10.4 9.5 - 12.9 fL [facility] NRBC/100 WBC 0.0 0.0 - 10.0 /100 WBCs [facility] NRBC x10^3 <0.01 10*3/L [facility] GRAN MAT (NEUT) 27.3 % [facility] % [facility] IMM GRAN % 0.10 % [facility] LYMPH % 58.3 % [facility] MONO % 9.6 % [facility] EOS % 4.0 % [facility] BASO % 0.7 % [facility] GRAN MAT 1.93 1.88 - 7.09 10*3/uL [facility] x10^3(ANC) [facility] IMM GRAN x10^3 <0.03 0.00 - 0.06 10*3/uL [facility] LYMPH x10^3 4.13 (H) 1.32 - 3.29 10*3/uL [facility] MONO x10^3 0.68 0.33 - 0.92 10*3/uL [facility] EOS x10^3 0.28 0.03 - 0.39 10*3/uL [facility] BASO x10^3 0.05 0.01 - 0.07 10*3/uL [facility] REACT LYMPHS Rare [facility] Specimen Blood - ARM, LEFT Performing Organization Address City/State/Zipcode Phone Number [facility] CLIA: [id number], [address] [place] [address] [facility] * XR FEMUR 2 VW RIGHT (02/16/2019 12:43 PM CDT) Specimen Impressions Performed At No fracture PACS/VR/DOSE Narrative Performed At * * * * * * * * ORIGINAL REPORT * * * * * * * * PACS/VR/DOSE EXAM: Pelvis AP view EXAM: Left and right femur 2 views each HISTORY: Fall TECHNIQUE:An AP view of the pelvis, AP and lateral views of the femora are obtained. FINDINGS:No acute fracture is seen involving the bones of the pelvis or the femora. No bone lesion is noted. Multiple injection granulomas are seen in the gluteal areas. Procedure Note [facility], Radiant Results Inft User - 02/16/2019 12:49 PM CDT * * * * * * * * ORIGINAL REPORT * * * * * * * * EXAM: Pelvis AP view EXAM: Left and right femur 2 views each HISTORY: Fall TECHNIQUE:An AP view of the pelvis, AP and lateral views of the femora are obtained. FINDINGS:No acute fracture is seen involving the bones of the pelvis or the femora. No bone lesion is noted. Multiple injection granulomas are seen in the gluteal areas. IMPRESSION No fracture Performing Organization Address [facility] Phone Number PACS/VR/DOSE * XR FEMUR 2 VW LEFT (02/16/2019 12:43 PM CDT) Specimen Impressions Performed At No fracture PACS/VR/DOSE Narrative Performed At * * * * * * * * ORIGINAL REPORT * * * * * * * * PACS/VR/DOSE EXAM: Pelvis AP view EXAM: Left and right femur 2 views each HISTORY: Fall TECHNIQUE:An AP view of the pelvis, AP and lateral views of the femora are obtained. FINDINGS:No acute fracture is seen involving the bones of the pelvis or the femora. No bone lesion is noted. Multiple injection granulomas are seen in the gluteal areas. Procedure Note [facility], Radiant Results Inft User - 02/16/2019 12:49 PM CDT * * * * * * * * ORIGINAL REPORT * * * * * * * * EXAM: Pelvis AP view EXAM: Left and right femur 2 views each HISTORY: Fall TECHNIQUE:An AP view of the pelvis, AP and lateral views of the femora are obtained. FINDINGS:No acute fracture is seen involving the bones of the pelvis or the femora. No bone lesion is noted. Multiple injection granulomas are seen in the gluteal areas. IMPRESSION No fracture Performing Organization Address [facility] Phone Number PACS/VR/DOSE * XR PELVIS <3 VW (02/16/2019 12:43 PM CDT) Specimen Impressions Performed At No fracture PACS/VR/DOSE Narrative Performed At * * * * * * * * ORIGINAL REPORT * * * * * * * * PACS/VR/DOSE EXAM: Pelvis AP view EXAM: Left and right femur 2 views each HISTORY: Fall TECHNIQUE:An AP view of the pelvis, AP and lateral views of the femora are obtained. FINDINGS:No acute fracture is seen involving the bones of the pelvis or the femora. No bone lesion is noted. Multiple injection granulomas are seen in the gluteal areas. Procedure Note [facility], Radiant Results Inft User - 02/16/2019 12:49 PM CDT * * * * * * * * ORIGINAL REPORT * * * * * * * * EXAM: Pelvis AP view EXAM: Left and right femur 2 views each HISTORY: Fall TECHNIQUE:An AP view of the pelvis, AP and lateral views of the femora are obtained. FINDINGS:No acute fracture is seen involving the bones of the pelvis or the femora. No bone lesion is noted. Multiple injection granulomas are seen in the gluteal areas. IMPRESSION No fracture Performing Organization Address [facility] Phone Number PACS/VR/DOSE * Chest 1 View (02/16/2019 12:43 PM CDT) Specimen Narrative Performed At * * * * * * * * ORIGINAL REPORT * * * * * * * * PACS/VR/DOSE CHEST ONE VIEW HISTORY:Fall TECHNIQUE:AP view of the chest is obtained. FINDINGS: Lungs are clear. Heart size and mediastinal silhouette are normal. No pleural effusion or pneumothorax is seen. No definite displaced rib fracture is seen in the visualized rib cage. CONCLUSIONS: No acute cardiopulmonary disease. Procedure Note [facility], Radiant Results Inft User - 02/16/2019 12:47 PM CDT * * * * * * * * ORIGINAL REPORT * * * * * * * * CHEST ONE VIEW HISTORY: Fall TECHNIQUE: AP view of the chest is obtained. FINDINGS: Lungs are clear. Heart size and mediastinal silhouette are normal. No pleural effusion or pneumothorax is seen. No definite displaced rib fracture is seen in the visualized rib cage. CONCLUSIONS: No acute cardiopulmonary disease. Performing Organization Address [facility] Phone Number PACS/VR/DOSE * CT CERVICAL SPINE WO CONTRAST (02/16/2019 12:38 PM CDT) Specimen Narrative Performed At * * * * * * * * ORIGINAL REPORT * * * * * * * * PACS/VR/DOSE CT SCAN OF THE CERVICAL SPINE HISTORY:C-spine trauma, ligamentous injury suspected C-spine fx, traumatic TECHNIQUE:2.5mm axial images are obtained through the cervical spine from the base of the skull to thoracic inlet level. Sagittal and coronal reformations are carried out. FINDINGS: There is no evidence of a fracture involving the cervical vertebral bodies or the posterior elements. Changes of spondylosis are seen at C3-C4, C4-C5, C5-C6 and C6-C7 in the form of disc space narrowing, endplate sclerosis and marginal osteophytes. Multilevel facet degenerative changes are seen resulting in foraminal narrowing. The pre-vertebral soft tissues are unremarkable. There is slight anterior subluxation of C3 in relation to C4. Reversal of normal cervical lordosis is seen. Ligamentous, vascular and spinal cord injury can not be evaluated by this study. CONCLUSIONS: 1.No fracture. 2. Changes of degenerative spondylosis and facet degenerative disease in cervical spine. 3. Mild anterior subluxation of C3 in relation to C4 likely related to degenerative disc disease and facet degenerative disease. Procedure Note [facility], Radiant Results Inft User - 02/16/2019 12:46 PM CDT * * * * * * * * ORIGINAL REPORT * * * * * * * * CT SCAN OF THE CERVICAL SPINE HISTORY: C-spine trauma, ligamentous injury suspected C-spine fx, traumatic TECHNIQUE: 2.5 mm axial images are obtained through the cervical spine from the base of the skull to thoracic inlet level. Sagittal and coronal reformations are carried out. FINDINGS: There is no evidence of a fracture involving the cervical vertebral bodies or the posterior elements. Changes of spondylosis are seen at C3-C4, C4-C5, C5-C6 and C6-C7 in the form of disc space narrowing, endplate sclerosis and marginal osteophytes. Multilevel facet degenerative changes are seen resulting in foraminal narrowing. The pre-vertebral soft tissues are unremarkable. There is slight anterior subluxation of C3 in relation to C4. Reversal of normal cervical lordosis is seen. Ligamentous, vascular and spinal cord injury can not be evaluated by this study. CONCLUSIONS: 1. No fracture. 2. Changes of degenerative spondylosis and facet degenerative disease in cervical spine. 3. Mild anterior subluxation of C3 in relation to C4 likely related to degenerative disc disease and facet degenerative disease. Performing Organization Address City/State/Zipcode Phone Number PACS/VR/DOSE * CT HEAD WO CONTRAST (02/16/2019 12:38 PM CDT) Specimen Narrative Performed At * * * * * * * * ORIGINAL REPORT * * * * * * * * PACS/VR/DOSE CT HEAD WITHOUT CONTRAST HISTORY: Syncope, simple, normal neuro exam Dizziness, non-specific Dizziness, persistent/recurrent, cardiac or vascular cause suspected TECHNIQUE: Routine CT scan of the brain is performed without intravenous contrast. FINDINGS: There is no evidence of an acute intracranial abnormality. No intra-axial or extra-axial fluid collections or masses are seen. No mass-effect or midline shift is seen. The brice-white distinction is preserved. The ventricles and cisterns are within normal limits. No calvarial abnormality is noted. CONCLUSIONS: No acute intracranial abnormality. Procedure Note [facility], Radiant Results Inft User - 02/16/2019 12:43 PM CDT * * * * * * * * ORIGINAL REPORT * * * * * * * * CT HEAD WITHOUT CONTRAST HISTORY: Syncope, simple, normal neuro exam Dizziness, non-specific Dizziness, persistent/recurrent, cardiac or vascular cause suspected TECHNIQUE: Routine CT scan of the brain is performed without intravenous contrast. FINDINGS: There is no evidence of an acute intracranial abnormality. No intra-axial or extra-axial fluid collections or masses are seen. No mass-effect or midline shift is seen. The brice-white distinction is preserved. The ventricles and cisterns are within normal limits. No calvarial abnormality is noted. CONCLUSIONS: No acute intracranial abnormality. Performing Organization Address City/State/Zipcode Phone Number PACS/VR/DOSE * CBC WITH DIFFERENTIAL (02/16/2019 12:01 PM CDT) WBC 5.86 4.30 - 11.[address] [facility] 10*3/L [facility] RBC 3.71 (L) 3.93 - 5.25 10*6/L [facility] HGB 12.0 11.6 - 15.0 g/dL [facility] HCT 36.5 35.7 - 45.2 % [facility] MCV 98.4 (H) 80.6 - 95.[address] [facility] MCH 32.3 25.9 - 32.[address] [facility] MCHC 32.9 31.6 - 35.1 g/dL [facility] RDW-SD 45.8 39.0 - 49.9 fL [facility] RDW-CV 12.6 12.0 - 15.5 % [facility] PLT 269 166 - 358 10*3/L [facility] MPV 10.0 9.5 - 12.9 fL [facility] NRBC/100 WBC 0.0 0.0 - 10.0 /100 WBCs [facility] NRBC x10^3 <0.01 10*3/L [facility] GRAN MAT (NEUT) 32.4 % [facility] % [facility] IMM GRAN % 0.20 % [facility] LYMPH % 47.8 % [facility]O % 14.3 % [facility] EOS % 4.6 % [facility] BASO % 0.7 % [facility] GRAN MAT 1.90 1.88 - 7.09 10*3/uL [facility] x10^3(ANC) [facility] IMM GRAN x10^3 <0.03 0.00 - 0.06 10*3/uL [facility] LYMPH x10^3 2.80 1.32 - 3.29 10*3/uL [facility] MONO x10^3 0.84 0.33 - 0.92 10*3/uL [facility] EOS x10^3 0.27 0.03 - 0.39 10*3/uL [facility] BASO x10^3 0.04 0.01 - 0.07 10*3/uL [facility] Specimen Blood - VENOUS Performing Organization Address City/State/Zipcode Phone Number [facility] CLIA: [id number], [address] [place] [address] [facility] * N-TERMINAL PRO-BNP (02/16/2019 12:01 PM CDT) NT-proBNP 342 <=450 pg/mL [facility] Specimen Blood - VENOUS Narrative Performed At Biotin has been reported to cause a negative bias, interpret results relative to [facility] patient's use of biotin. [facility] Performing Organization Address City/State/Zipcode Phone Number [facility] CLIA: [id number], [address] [place] [address] [facility] * Prothrombin Time (PT) / INR (02/16/2019 12:01 PM CDT) Pathologist [facility] [place] PROTIME PATIENT 10.5 10.1 - 12.[address] [facility] INR 1.0Comment: Normal INR <1.1; [facility] Warfarin Therapeutic range 2.0 [facility] to 3.0 or 2.5 to 3.5, [facility] depending upon the indications. Specimen Blood - VENOUS Performing Organization Address City/[facility] Phone Number [facility] CLIA: [id number], [address] [place] [address] [facility] * aPTT (02/16/2019 12:01 PM CDT) Pathologist [facility] [place] APTT Patient 32 26 - [address] [facility] Specimen Blood - VENOUS Performing Organization Address City/[facility]/Zipcode Phone Number [facility] CLIA: [id number], [address] [place] [address] [facility] * Troponin I (02/16/2019 12:01 PM CDT) [facility] TROPONIN I 0.001 <=0.034 ng/mL [facility] Specimen Blood - VENOUS Narrative Performed At Equal or Less than 0.034 ng/ml---Normal [facility] Note: Cardiac troponin begins to rise 3-4 hours after the onset of ischemia. [facility] Repeat in 4-6 hours if the sample was drawn within 3-4 hours of the onset of the CAMPUS symptom and found normal. Between 0.035 and 0.120 ng/mL--- Borderline. Questionable myocardial injury or necrosis Note: Serial measurement may be necessary to confirm or exclude the diagnosis of myocardial injury or necrosis; Clinical correlation (symptoms, EKGs, imaging studies, and others) required; Repeat in 4-6 hours if clinically indicated. Equal or Higher than 0.121 ng/mL---Abnormal. Myocardial Injury or Necrosis Likely Biotin has been reported to cause a negative bias, interpret results relative to patient's use of biotin. Performing Organization Address [facility] Phone Number [facility] CLIA: [id number], [address], [place] [id number] [facility] * Hepatic Function Panel (ALB, T.PRO, BILI T, BU/BC, ALT, AST, ALK PHOS) (02/16/2019 12:01 PM CDT) TOTAL BILI 0.3 0.1 - 1.1 mg/dL [facility] BILI UNCON 0.3 0.1 - 1.1 mg/dL [facility] BILI CONJ 0.0 0.0 - 0.3 mg/dL [facility] T PROTEIN 6.4 6.3 - 8.2 g/dL [facility] ALBUMIN 3.4 (L) 3.5 - 5.0 g/dL [facility] ALK PHOS 53 34 - 122 U/L [facility] ALT(SGPT) 22 9 - 51 U/L [facility] AST(SGOT) 29 13 - 40 U/L [facility] Specimen Blood - VENOUS Performing Organization Address City/[facility] Cent[facility]ode Phone Number [facility] CLIA: [id number], [address] [place] [address] [facility] * Basic Metabolic Panel (NA, K, CL, CO2, GLUCOSE, BUN, CREATININE, CA) (02/16/2019 12:01 PM CDT) NA 137 135 - 145 mmol/L [facility] K 4.4 3.5 - 5.0 mmol/L [facility] CL 103 98 - 108 mmol/L [facility] CO2 TOTAL 31 23 - 31 mmol/L [facility] AGAP 3 2 - [address] [facility] BUN 20 7 - 23 mg/dL [facility] GLUCOSE 83 70 - 110 mg/dL [facility] CREATININE 0.38 (L) 0.50 - 1.04 mg/dL [facility] CALCIUM 9.4 8.6 - 10.6 mg/dL [facility] eGFR 164.2 mL/min/1.73m2 [facility] Calculation [facility]-[place] (Non-[facility]) eGFR 199.0 mL/min/1.73m2 [facility] Calculation [facility] Specimen Blood - VENOUS Narrative Performed At Association of Glomerular Filtration Rate (GFR) and Staging of Kidney Disease* [facility] + + + + [facility] | GFR (mL/min/1.73 m2)| With Kidney Damage|Without Kidney Damage CAMPUS + + + + |>90|Stage one| Normal + + + + |60-89|Stage two| Decreased GFR + + + + |30-59|Stage three| Stage three + + + + |15-29|Stage four | Stage four + + + + |<15 (or dialysis)|Stage five | Stage five + + + + *Each stage assumes the associated GFR level has been in effect for at least three months.Stages 1 to 5, with or without kidney disease, indicate chronic kidney disease. Notes: Determination of stages one and two (with eGFR >59mL/min/1.73 m2) requires estimation of kidney damage for at least three months as defined by structural or functional abnormalities of the kidney, manifested by either: Pathological abnormalities or Markers of kidney damage (including abnormalities in the composition of the blood or urine or abnormalities in imaging tests). Performing Organization Address City/State/Zipcode Phone Number [facility] CLIA: [id number], [address] [place] [address] [facility] * Urinalysis (02/16/2019 12:01 PM CDT) APPEARANCE Hazy (A) Clear [facility] COLOR Yellow Yellow [facility] PH 7.0 4.8 - 8.0 [facility] SP GRAVITY 1.005 1.003 - 1.030 [facility] GLU U QUAL Normal Normal [facility] BLOOD [facility] Negative [facility] KETONES Negative Negative [facility] PROTEIN Negative Negative [facility] UROBILIN Normal Normal [facility] BILIRUBIN Negative Negative [facility] NIT[facility]ITE Negative Negative [facility] LEUK BHAVIN Negative Negative [facility] RBC/HPF 1 0 - 3 HPF [facility] SERVICES-[facility] WBC/HPF <1 0 - 5 HPF [facility] SERVICES[facility] BACTERIA Many (A) Negative [facility] SQ EPITH 1 <=[address] [facility] Specimen Urine - URINE, CLEAN CATCH Performing Organization Address City/State/Zipcode Phone Number [facility] CLIA: [id number], [address] [place] [address] [facility] documented in this encounter Visit Diagnoses Diagnosis Fall, initial encounter - Primary Syncope, unspecified syncope type Leg weakness, bilateral Other musculoskeletal symptoms referable to limbs Disequilibrium syndrome Electrolyte and fluid disorders not elsewhere classified documented in this encounter Administered Medications Action Date Dose Rate Site Medication Order MAR Action 02/16/2019 9:08 PM CDT 650 mg acetaminophen (TYLENOL) tablet 650 mg Given 650 mg, Oral, Q6HPRN, Starting Tue02/16/19 at 1354, Until Discontinued, Routine, Pain (scale 1-3) 02/18/2019 8:30 PM CDT 10 mg diazePAM (VALIUM) tablet 10 mg Given 10 mg, Oral, QHS, First dose on Tue02/16/19 at 2100, Until Discontinued, Routine 10 mg Given 02/17/2019 8:52 PM CDT 10 mg Given 02/16/2019 8:11 PM CDT 02/18/2019 10:16 AM CDT 40 mg Abdomen-SC enoxaparin (LOVENOX) injection 40 mg Given 40 mg, Subcutaneous, DAILY, First dose on Tue02/17/19 at 0900, Until Discontinued, Routine 40 mg Left Upper Arm-SC Given 02/17/2019 8:38 AM CDT 02/19/2019 6:07 PM CDT 1 Drop latanoprost (XALATAN) 0.005 % ophthalmic Given drops 1 Drop 1 Drop, Both Eyes, QPM, First dose on 02/17/19 at 1700, Until Discontinued, Routine 1 Drop Given 02/18/2019 6:08 PM CDT 1 Drop Given 02/17/2019 8:52 PM CDT 02/19/2019 5:58 AM CDT 75 mcg levothyroxine (SYNTHROID) tablet 75 mcg Given 75 mcg, Oral, QAM-0600, First dose on Tue02/18/19 at 0600, Until Discontinued, Routine 75 mcg Given 02/18/2019 7:17 AM CDT 02/18/2019 8:30 PM CDT 17 g Polyethylene Glycol 3350 (MIRALAX) Given powder 17 g 17 g, Oral, BID, First dose on Tue02/16/19 at 2000, Until Discontinued, Routine 17 g Given 02/17/2019 8:33 AM CDT 02/19/2019 6:07 PM CDT 1 Drop timolol (TIMOPTIC) 0.5 % ophthalmic Given solution 1 Drop 1 Drop, Both Eyes, BID, First dose on Tue02/17/19 at 2000, Until Discontinued, Routine 1 Drop Given 02/19/2019 9:21 AM CDT 1 Drop Given 02/18/2019 8:31 PM CDT 02/18/2019 10:21 AM CDT 50 mg traMADol (ULTRAM) tablet 50 mg Given 50 mg, Oral, Q6HPRN, Starting 02/17/19 at 1451, Until Discontinued, Routine, Pain (scale 4-6) Action Date Dose Rate Site Medication Order MAR Action 02/19/2019 4:58 PM CDT 12 mL gadoterate meglumine (DOTAREM-15 mL) Given injection 14.66 mL 14.66 mL (0.2 mL/kg 73.3 kg), Intravenous, ONCE, 1 dose, 02/19/19 at 1830, Routine 02/16/2019 9:08 PM CDT 1 Drop latanoprost (XALATAN) 0.005 % ophthalmic Given drops 1 Drop 1 Drop, Both Eyes, QHS, First dose on Tue02/16/19 at 2100, Until Discontinued 02/17/2019 5:26 AM CDT 75 mcg levothyroxine (SYNTHROID) tablet 75 mcg Given 75 mcg, Oral, QAM-0600, First dose on Tue02/17/19 at 0600, Until Discontinued, Routine 02/16/2019 10:03 PM CDT 1 Drop timolol (TIMOPTIC) 0.5 % ophthalmic Given solution 1 Drop 1 Drop, Both Eyes, QHS, First dose on Tue02/16/19 at 2200, Until Discontinued, Routine documented in this encounter Insurance Type Payer Benefit Subscriber ID Effective Phone Address Plan / Dates Group Medicare MEDICARE MEDICARE xxxxxxxxxx 2006-P [phone] [address] resent [id number] [place] [address] Medicare Supplement [facility] [id number] 2018-P [address] resent [id number] MEDICARE [place] SUPPLEMENT [place] [id number] documented as of this encounter"
== END 2019-03-16 18:28 | disposition left against medical advice (07) ==
LOC: ER 17:53
DX: Z47.89 Encounter for other orthopedic aftercare (principal)

== ENCOUNTER → 2019-05-25 | Outpatient (CLI) | payer MEDICARE ==
[~2019-05-25] MED LIST: GADOBENATE DIMEGLUMINE 1 ML IV ONE
[2019-05-25 10:38] LABS: BLOOD UREA NITROGEN 17 mg/dL (7-26); BUN/CREATININE RATIO 27 (6-25); CREATININE, SERUM 0.64 mg/dL (0.57-1.11); EST GLOMERULAR FILTRATION RATE > 60 ML/MIN (60-)
--- NOTE | 2019-05-25 12:39 | Diagnostic Imaging Report ---
History: Sudden hearing loss Comparison studies: None. Technique: Precontrast: Brain: Axial T1, DWI, T2 flair/ IACs: Axial T2 high resolution, axial T1 Postcontrast: Axial T1 brain, axial and coronal T1 centered in the IACs. Intravenous contrast:10 cc of MultiHance . FINDINGS: Posterior Fossa: Brainstem: No abnormal signal intensity or enhancement.] Cerebellar Hemispheres: No signal abnormalities . Right cerebellopontine angle: No abnormalities Left cerebellopontine angle: No abnormalities Supratentorial region: Masses: None. Acute or chronic vascular insults: None. Ventricles: Normal in size. No hydrocephalus. Basal ganglia and thalami: No signal abnormalities. Extracerebral collections: None. Age-appropriate cerebral volume. Few small T-2/flair hyperintensities of the periventricular and the white matter, nonspecific and most commonly seen with mild chronic microvascular ischemic changes. Mild mucosal thickening of the bilateral maxillary sinuses, related to nonspecific inflammation. Additional findings: Mild degenerative canal stenosis at the upper cervical spine partially visualized IMPRESSION: 1. No posterior fossa abnormality. 2. No acute intracranial abnormality. Signed by: DR Grant Sheriff M.D. on 05/25/2019 12:35 PM
== END ==
LOC: MRI 09:37
PROVIDERS: ATTEND Otolaryngology
DX: H91.23 Sudden idiopathic hearing loss, bilateral (principal)
CPT/HCPCS: 36415; 70553; 82565; 84520; A9577

== ENCOUNTER → 2020-12-10 | Outpatient (CLI) | payer MEDICARE | LOC: CT 15:40 | PROVIDERS: ATTEND Family Medicine | DX: R42 Dizziness and giddiness (principal) | CPT/HCPCS: 70450 ==

== ENCOUNTER → 2021-10-05 | Outpatient (CLI) | payer MEDICARE | LOC: CARD 12:48 | PROVIDERS: ATTEND Family Medicine | DX: I73.9 Peripheral vascular disease, unspecified (principal) | CPT/HCPCS: 93925 ==